=== PATIENT | male | born 1945 | race Caucasian/White ===

== ENCOUNTER → 2017-10-04 | Outpatient (REF) | payer MEDICARE ==
[2017-10-09 11:05] LABS: VITAMIN B12 LEVEL 336 PG/ML (247-911)
== END ==
LOC: M LAB REF 12:12
DX: Z13.21 Encounter for screening for nutritional disorder (principal)
CPT/HCPCS: 82746

== ENCOUNTER → 2018-06-13 | Day surgery (SDC) | payer OTHER ==
[~2018-06-13] VITALS: Ht 167.6 cm; Wt 93.8 kg
[~2018-06-13] MED LIST: ASPI-225 PO; ASPI81TA21 PO; ATEN25TA PO; COUM1TAB17 PO; COUM2.5T17 PO; COUM7.5T PO; LEVO150T7 PO; LIDOCAINE 2% INJ 100 MG/5 ML SDV (FOR ANES.) As Ordered ONE; LISI-538 PO; METF10004 PO; METF500T13 PO; NAPR220C PO; NS 1,000 ML IV ONE; PERC5TAB12 PO; PROPOFOL 200 MG/20 ML VIAL As Ordered ONE; SIMV40TA2 PO; TYLE325T5 PO
--- NOTE | 2018-06-13 10:06 | ROOR ---
Patient Name: Naga Zazueta Procedure Date: 06/13/2018 9:46 AM Date of : 1945 Age: 72 Room: [facility] Gender: Male Note Status: Finalized Procedure: Colonoscopy Indications: Screening for colorectal malignant neoplasm Providers: Christopher Estrella Jr, MD Referring MD: Andres Head MD Requesting Provider: Medicines: Propofol per Anesthesia Complications: No immediate complications. Procedure: Pre-Anesthesia Assessment: - Prior to the procedure, a History and Physical was performed, and patient medications and allergies were reviewed. The patient is competent. The risks and benefits of the procedure and the sedation options and risks were discussed with the patient. All questions were answered and informed consent was obtained. Patient identification and proposed procedure were verified by the physician and the nurse in the pre-procedure area and in the procedure room. Mental Status Examination: alert and oriented. Airway Examination: normal oropharyngeal airway and neck mobility. Respiratory Examination: clear to auscultation. CV Examination: normal. ASA Grade Assessment: II - A patient with mild systemic disease. After reviewing the risks and benefits, the patient was deemed in satisfactory condition to undergo the procedure. The anesthesia plan was to use moderate sedation / analgesia (conscious sedation). Immediately prior to administration of medications, the patient was re-assessed for adequacy to receive sedatives. The heart rate, respiratory rate, oxygen saturations, blood pressure, adequacy of pulmonary ventilation, and response to care were monitored throughout the procedure. The physical status of the patient was re-assessed after the procedure. The Colonoscope was introduced through the anus and advanced to the cecum, identified by appendiceal orifice and ileocecal valve. The colonoscopy was performed without difficulty. The patient tolerated the procedure well. The quality of the bowel preparation was adequate. Findings: The rectum, sigmoid colon, descending colon, transverse colon, ascending colon, appendiceal orifice and ileocecal valve appeared normal. A small polyp was found in the cecum. The polyp was removed with a cold snare. Resection and retrieval were complete. Impression: - The rectum, sigmoid colon, descending colon, transverse colon, ascending colon, appendiceal orifice and ileocecal valve are normal. - One small polyp in the cecum, removed with a cold snare. Resected and retrieved. Recommendation: - Repeat colonoscopy in 5-10 years for surveillance based on pathology results. - Telephone my office for pathology results in 1 week. Christopher Estrella MD Christopher Estrella Jr, MD 06/13/2018 10:06:12 AM This report has been signed electronically. Number of Addenda: 0 Note Initiated On: 06/13/2018 9:46 AM Estimated Blood Loss: Estimated blood loss: none.
[2018-06-13 10:38] VITALS: BP 105/71
== END | disposition home or self-care (01) ==
LOC: M OPP 09:05
PROVIDERS: ATTEND Surgery
DX: Z12.11 Encounter for screening for malignant neoplasm of colon (principal); D12.0 Benign neoplasm of cecum; I10 Essential (primary) hypertension; E11.9 Type 2 diabetes mellitus without complications; E78.00 Pure hypercholesterolemia, unspecified; E03.9 Hypothyroidism, unspecified; M19.90 Unspecified osteoarthritis, unspecified site; E66.9 Obesity, unspecified; Z79.899 Other long term (current) drug therapy; Z79.82 Long term (current) use of aspirin; Z79.84 Long term (current) use of oral hypoglycemic drugs; Z79.890 Hormone replacement therapy; Z98.890 Other specified postprocedural states

== ENCOUNTER → 2018-10-11 | Outpatient (CLI) | payer OTHER ==
[~2018-10-11] MED LIST changes: -LIDOCAINE 2% INJ 100 MG/5 ML SDV (FOR ANES.) As Ordered ONE; -NS 1,000 ML IV ONE; -PROPOFOL 200 MG/20 ML VIAL As Ordered ONE
[2018-10-11 10:16] LABS: HEMATOCRIT 37.3 % (42.0-52.0); HEMOGLOBIN 12.7 g/dl (13.5-17.5); MEAN CORPUSCULAR HEMOGLOBIN 33.3 pg (27.0-33.0); MEAN CORPUSCULAR VOLUME 97.9 fl (80.0-96.0); PLATELET COUNT, AUTOMATED 153 10^3/uL (150-450); RED BLOOD COUNT 3.81 10^6/uL (4.30-6.10); WHITE BLOOD COUNT 7.6 10^3/uL (4.0-10.0)
[2018-10-11 10:31] LABS: INR 1.04; PROTHROMBIN TIME 13.7 SECONDS (12.1-14.4)
[2018-10-11 10:43] LABS: ALBUMIN 4.1 GM/DL (3.2-5.2); ALT/SGPT 19 U/L (12-78); BLOOD UREA NITROGEN 18 MG/DL (7-18); CALCIUM LEVEL 9.3 MG/DL (8.8-10.2); CARBON DIOXIDE LEVEL 28 MEQ/L (21-32); CHLORIDE LEVEL 108 MEQ/L (98-107); CREATININE FOR GFR 0.92 MG/DL (0.70-1.30); GLOMERULAR FILTRATION RATE > 60.0 (>42); GLUCOSE, FASTING 136 MG/DL (70-100); POTASSIUM SERUM 4.7 MEQ/L (3.5-5.1); SODIUM LEVEL 141 MEQ/L (136-145); TOTAL PROTEIN 6.9 GM/DL (6.4-8.2)
[2018-10-11 10:48] LABS: ERYTHROCYTE SEDIMENTATION RATE 8 mm/hr (0-20)
--- NOTE | 2018-10-11 12:36 | REP ---
Chest two views HISTORY: Preop Comparison: 04/05/2015 Linear densities are present in the right middle lobe consistent with scarring. The left lung is clear. The heart is normal in size. The pulmonary vasculature is normal in appearance. The bony structure is intact. IMPRESSION: Right middle lobe scarring. Electronically Signed by Denys Rankin MD 10/11/2018 12:27 P
--- NOTE | 2018-10-11 18:47 | ECGEPIP ---
Stationary ECG Study 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
== END ==
LOC: M LAB 09:01
PROVIDERS: ATTEND Orthopaedic Surgery
DX: Z01.818 Encounter for other preprocedural examination (principal); T84.091A Other mechanical complication of internal left hip prosthesis, initial encounter; R91.8 Other nonspecific abnormal finding of lung field

== ENCOUNTER → 2018-10-18 | Outpatient (REF) | payer OTHER ==
[2018-10-18 16:05] LABS: FOLATE 15.5 NG/ML
== END ==
LOC: M LAB REF 15:21
PROVIDERS: ATTEND Family Medicine
DX: D64.9 Anemia, unspecified (principal)

== ENCOUNTER 2018-11-12 09:06 | Inpatient (IN) | payer OTHER ==
--- NOTE | 2018-11-06 11:36 | HPE ---
DATE OF ANTICIPATED ADMISSION: 11/12/2018 CHIEF COMPLAINT: Left hip pain. HISTORY OF PRESENT ILLNESS: Mr. Zazueta this is a pleasant 73-year-old male with progressively worsening left hip pain and stiffness. He is status post left total hip arthroplasty that was done 09/17/2003. He has managed to wear out his poly. He has failed to improve with conservative treatment. He has elected for surgery for his continued symptoms. He has pain with weightbearing activities and his activities of daily living. X-rays of his hip are notable for advanced polyethylene wear in the left total hip arthroplasty. He has consented for a left total hip arthroplasty revision by Dr. Jayden Montenegro. Medical optimization was performed by Dr. Head. ALLERGIES: None. CURRENT MEDICATIONS: - metformin 500 mg twice a day - lisinopril 20 mg twice a day - atenolol 25 mg in the morning - Synthroid 50 and 112 mcg in the morning - simvastatin 40 mg at night - baby aspirin at night PAST MEDICAL HISTORY: Includes, diabetes, hypertension, high cholesterol, and hypothyroidism. PAST SURGICAL HISTORY: Includes, bilateral total knee arthroplasties and a left total hip arthroplasty. SOCIAL HISTORY: This gentleman is retired. Does not smoke. Rarely drinks. FAMILY HISTORY: Is noncontributory. REVIEW OF SYSTEMS: This patient denies chest pain, heart palpitations, cough, wheezing, difficulty breathing, and shortness of breath. He denies abdominal pain, nausea, vomiting, diarrhea, or constipation. He denies recent upper respiratory infection or urinary tract infection symptoms. He does complain of persistent pain in his left hip. PHYSICAL EXAM: General: He is well-nourished, well-developed, in no acute distress, alert male patient who walks with a mild limp favoring the left lower extremity. He is not using assistive devices. Vital signs: He is 66 inches tall, weighs 206.5 pounds, temperature 97.6, blood pressure 120/70, pulse 72, and respirations of 18. Neck was supple without adenopathy or jugular venous distension. Lungs were clear to auscultation without rales or wheeze. Heart: Regular rate and rhythm. Abdomen: Bowel sounds were present. Extremities: Examination of the hip revealed a well-healed surgical scar, otherwise, the skin was intact. He had decreased internal, external rotation on exam due to pain and stiffness. The limb is neurovascularly intact. LABORATORY DATA: Chest x-ray showed right middle lobe scarring, otherwise, no acute cardiopulmonary disease processes. EKG showed sinus rhythm with sinus arrhythmia at 62 beats per minute. CBC showed red count of 3.81, hemoglobin of 12.7, hematocrit of 37.3, MCV of 97.9, and MCH of 33.3, otherwise within normal limits. Sed rate was 8. Glucose 136, BUN 18, creatinine 0.92. Prothrombin time 13.7, INR 1.04. 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 PLAN: Consented for a left total hip arthroplasty revision by Dr. Jayden Montenegro.
[2018-11-12] VITALS (7 sets, daily range): BP systolic 70–105; BP diastolic 40–78
[~2018-11-12] VITALS: Ht 167.6 cm; Wt 93.9 kg
[~2018-11-12 09:06] MED LIST changes: +LIDOCAINE 1% MDV 20ML VIAL SQ PRN
[2018-11-12] MEDS ORDERED: LR 1,000 ML IV ONE ×2 (09:30→19:15)
[2018-11-12] MEDS ORDERED: BUPIVACAINE HCL 0.25% 30 ML VIAL As Ordered ONE (11:09)
[2018-11-12] MEDS ORDERED: fentaNYL 100 MCG/2 ML INJECTION (J3010) As Ordered ONE (11:10)
[2018-11-12] MEDS ORDERED: MIDAZOLAM INJ 2 MG/2 ML VIAL (J2250) As Ordered ONE (11:10)
[2018-11-12] MEDS ORDERED: LIDOCAINE 2% INJ 100 MG/5 ML SDV (FOR ANES.) As Ordered ONE (12:18)
[2018-11-12] MEDS ORDERED: ONDANSETRON 4MG/2ML VIAL (J2405) As Ordered ONE (12:18)
[2018-11-12] MEDS ORDERED: dexameTHASONE 4 MG/ML 1ML VIAL (J1100) As Ordered ONE (12:18)
[2018-11-12] MEDS ORDERED: PROPOFOL 500 MG/50 ML VIAL As Ordered ONE (12:19)
[2018-11-12] MEDS ORDERED: TRANEXAMIC ACID 100 MG/ML 10ML VIAL As Ordered ONE (12:55)
[2018-11-12] MEDS ORDERED: EPINEPHrine INJ 1 MG/ML 1ML AMP As Ordered ONE (12:55)
[2018-11-12] MEDS ORDERED: ceFAZolin 1GM INJ (J0690 PER 500MG) As Ordered ONE (12:55)
[2018-11-12] MEDS ORDERED: BUPIVACAINE HCL 0.5% 30 ML VIAL As Ordered ONE (12:58)
[2018-11-12] MEDS ORDERED: BUPIVACAINE LIPOSOME/PF 1.3% 20ML VIAL (13.3MG/ML)(EXPAREL)(C9290 PER1MG) As Ordered ONE (13:24)
[2018-11-12] MEDS ORDERED: BUPIVACAINE HCL 0.5% 10 ML VIAL As Ordered ONE (13:24)
--- NOTE | 2018-11-12 13:32 | HPE ---
DATE OF ADMISSION: 11/12/2018 The patient is seen and examined preoperatively. He wished to ahead with a revision left hip arthroplasty. 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 He understands the nature of this, the risks of bleeding, infection, damage to nerves, vessels, persistent pain, wear loosening, dislocation, leg length inequality, blood clots, medical problems, , among others. He understands our goal is to try to just remove the polyethylene and the femoral head and replace those and likely bone graft some of the areas of osteolysis. However, if the components are loose, this may require more surgery, and he is aware of that. Preoperative clearance was obtained.
[2018-11-12] MEDS ORDERED: PHENYLephrine HCL 500 MCG/5 ML (100MCG/ML) SYRINGE (J2370) As Ordered ONE (13:54)
[2018-11-12] MEDS ORDERED: ePHEDrine SULFATE 25 MG/5 ML(5MG/ML) SYRINGE As Ordered ONE ×2 (13:54→14:44)
[2018-11-12] MEDS ORDERED: PHENYLEPHRINE INJ 10MG/ML VIAL (J2370) As Ordered ONE (14:22)
[2018-11-12] MEDS ORDERED: PROPOFOL 200 MG/20 ML VIAL As Ordered ONE (15:49)
[2018-11-12] MEDS ORDERED: METOCLOPRAMIDE INJ 10MG/2ML VIAL (J2765) IV PRN (16:30)
[2018-11-12] MEDS ORDERED: oxyCODONE 5MG TAB PO PRN (16:30)
[2018-11-12] MEDS ORDERED: PROMETHAZINE INJ 25 MG/ML VIAL (J2550) IV PRN (16:30)
[2018-11-12] MEDS ORDERED: LR 1,000 ML IV SCH (16:30)
[2018-11-12] MEDS ORDERED: MORPHINE 4 MG/ML 1ML VIAL/SYRINGE (J2270) IV PRN ×2 (16:30)
[2018-11-12] MEDS: LR 1,000 ML IV SCH (16:30)
[2018-11-12] MEDS ORDERED: fentaNYL 100 MCG/2 ML INJECTION (J3010) IV PRN (16:30)
[2018-11-12] MEDS ORDERED: ONDANSETRON 4MG/2ML VIAL (J2405) IV PRN (16:30)
--- NOTE | 2018-11-12 16:37 | REP ---
Portable left hip two views: The lateral view is under penetrated. A repeat lateral view is recommended. On the AP view, there is a total hip arthroplasty with the components tightly applied and in satisfactory positions alignment in this single projection. Electronically Signed by Tre Rivers MD 11/12/2018 04:28 P
[2018-11-12] MEDS ORDERED: ACETAMINOPHEN TAB 650MG DOSE (2X325MG) PO PRN (16:45)
[2018-11-12] MEDS ORDERED: FLEET ENEMA PR PRN (16:45)
[2018-11-12 16:50] LABS: HEMATOCRIT 29.4 % (42.0-52.0); HEMOGLOBIN 9.8 g/dl (13.5-17.5); MEAN CORPUSCULAR HEMOGLOBIN 31.8 pg (27.0-33.0); MEAN CORPUSCULAR HGB CONC 33.3 g/dl (32.0-36.5); MEAN CORPUSCULAR VOLUME 95.5 fl (80.0-96.0); PLATELET COUNT, AUTOMATED 159 10^3/uL (150-450); RED BLOOD COUNT 3.08 10^6/uL (4.30-6.10); WHITE BLOOD COUNT 10.5 10^3/uL (4.0-10.0)
--- NOTE | 2018-11-12 19:03 | IPNPDOC ---
Date Seen The patient was seen on 11/12/18. Progress Note Nurse called regarding patient being hypotensive, wasn't sure who the attending was. Reportedly had BP in the 70s systolic and patient was diaphoretic, reportedly had significant blood loss from procedure. CBC post op showed Hb 9.8. Patient was placed in Tredelenberg. Upon assessment, BP is up to 90 systolic, patient fully alert and oriented, stating he feels much better than prior. To repeat CBC stat, may need transfusion. To get 500cc IVF bolus at this time as well. Will endorse to night time hospitalist for follow up. BAL VERMA MD Nov 12, 2018 19:03
[2018-11-12 19:39] LABS: HEMATOCRIT 27.8 % (42.0-52.0); HEMOGLOBIN 9.2 g/dl (13.5-17.5); MEAN CORPUSCULAR HEMOGLOBIN 32.7 pg (27.0-33.0); MEAN CORPUSCULAR HGB CONC 33.1 g/dl (32.0-36.5); MEAN CORPUSCULAR VOLUME 98.9 fl (80.0-96.0); PLATELET COUNT, AUTOMATED 172 10^3/uL (150-450); RED BLOOD COUNT 2.81 10^6/uL (4.30-6.10); WHITE BLOOD COUNT 20.5 10^3/uL (4.0-10.0)
[2018-11-12] MEDS ORDERED: LIDOCAINE 1% MDV 20ML VIAL ONE (19:48)
[2018-11-12] MEDS: PERCOCET 5MG/325MG TAB PO PRN (21:49)
--- NOTE | 2018-11-12 22:09 | CR.PDOC ---
General Date of Consultation: Nov 12, 2018 Consultation HPI 73-year-old male with a PMH of HTN, HLD, hypothyroidism, prostate cancer s/p prostatectomy, b/l knee and hip surgery from osteoarthritis, presented with progressively worsening left hip pain and stiffness. He is status post left total hip arthroplasty in 2004. He has failed to improve with conservative treatment. He has elected for surgery for his continued symptoms. He has pain with weightbearing activities and his activities of daily living. X-rays of his hip are notable for advanced polyethylene wear in the left total hip arthroplasty. The patient was taken to the OR for revision of the L total hip arthroplasty, and surgery was complicated by blood loss anemia. Post-op, the pa tient was hypotensive, which required IV hydration. ALLERGIES: None. CURRENT MEDICATIONS: - Metformin 500 mg twice a day - Lisinopril 20 mg twice a day - Atenolol 25 mg in the morning - Synthroid 50 and 112 mcg in the morning - Simvastatin 40 mg at night - Baby aspirin at night PAST MEDICAL HISTORY: Includes HTN, HLD, hypothyroidism, prostate cancer PAST SURGICAL HISTORY: Includes, bilateral total knee arthroplasties and a left total hip arthroplasty. Prostatectomy SOCIAL HISTORY: This gentleman is retired. Denies smoking or EtOH abuse FAMILY HISTORY: Mother DM and of DM complications. Father had prostate cancer. REVIEW OF SYSTEMS: This patient denies chest pain, heart palpitations, cough, wheezing, difficulty breathing, and shortness of breath. He denies abdominal pain, nausea, vomiting, diarrhea, or constipation. He denies recent upper respiratory infection or urinary tract infection symptoms. He does complain of persistent pain in his left hip. PHYSICAL EXAM: General: Not in acute distress. Obese Neck: supple without adenopathy or jugular venous distension. Lungs: clear to auscultation bilaterally Heart: Regular rate and rhythm. No obvious murmurs. Abdomen: Bowel sounds were present. Nontender, nondistended Extremities: Wrapped L hip with minor blood soaking, no edema Skin: no rashes, sores or blisters A/P 73 yo M Includes HTN, HLD, hypothyroidism, prostate cancer, b/l knee and hip surgery, underwent revision of L hip # Hypotension - Post-op, the patient was found to be hypotensive, requiring IV bolus and continous IV hydration. - Continue IV hydration and follow vital signs # HTN, HLD - Hold off medications # Hypothyroidism - Cont. levothyroxine, home med # Acute blood loss anemia - Will transfuse if Hb<7 # No DVT ppx, given bleeding. SCD for now. Vital Signs/I&O Vital Signs Date Time Temp Pulse Resp B/P (MAP) Pulse Ox O2 Delivery O2 Flow Rate FiO2 11/12/18 21:49 16 11/12/18 20:00 98/56 (70) 11/12/18 18:00 97.1 53 97 11/12/18 13:15 2 Laboratory Data Labs 24H Laboratory Tests 2 11/12/18 13:12: Bedside Glucose (Misc Panel) 124H 11/12/18 15:15: POC pH (Misc Panel) 7.361, POC Base Excess (Misc Panel) 5.0H, POC Saturated Percent O2 (Misc) 76L, POC pO2 (Misc Panel) 43.0*L, POC pCO2 (Misc Panel) 53.0H, POC HCO3 (Misc Panel) 30.0H, POC Glucose (Misc Panel) 127H, POC Sodium (Misc Panel) 138, POC Potassium (Misc Panel) 6.2*H, POC Total CO2 (Misc Panel) 32.0H, POC Ionized Calcium (Misc Panel) 4.6, POC Hemoglobin (Calculated)(Misc) 10.2L, POC Hematocrit (Misc Panel) 30.0L 11/12/18 16:30: Nucleated Red Blood Cells % (auto) 0.0 11/12/18 18:27: Bedside Glucose (Misc Panel) 209H 11/12/18 19:18: Nucleated Red Blood Cells % (auto) 0.0 CBC/BMP Laboratory Tests 11/12/18 09:22 11/12/18 16:30 Red Blood Count 3.08 L, Mean Corpuscular Volume 95.5, Mean Corpuscular Hemoglobin 31.8, Mean Corpuscular Hemoglobin Concent 33.3, Red Cell Distribution Width 13.2 11/12/18 19:18 Red Blood Count 2.81 L, Mean Corpuscular Volume 98.9 H, Mean Corpuscular Hemoglobin 32.7, Mean Corpuscular Hemoglobin Concent 33.1, Red Cell Distribution Width 13.0 Allergies Coded Allergies: No Known Allergies (Verified , 11/12/18) Home Medications Scheduled Aspirin (Aspirin EC) 81 Mg Tab, 81 MG PO DAILY, (Reported) Atenolol (Atenolol) 25 Mg Tab, 25 MG PO DAILY, (Reported) Levothyroxine Sodium (Levothyroxine Sodium) 150 Mcg Tab, 150 MCG PO DAILY, (Reported) Lisinopril (Lisinopril) 20 Mg Tab, 20 MG PO BID, (Reported) Metformin HCl (Metformin HCl) 500 Mg Tab, 500 MG PO QAM, (Reported) Metformin HCl (Metformin HCl) 1,000 Mg Tab, 1,000 MG PO QPM, (Reported) Simvastatin (Simvastatin) 40 Mg Tab, 40 MG PO QHS, (Reported) TRINY PAN MD Nov 12, 2018 22:09
[2018-11-12] MEDS: SIMVASTATIN 40 MG TAB PO SCH (22:44)
[2018-11-12] MEDS ORDERED: SODIUM CHLORIDE 0.9% 1000ML IV ONE (23:00)
--- NOTE | 2018-11-12 23:00 | IPNPDOC ---
Text Note Date of Service The patient was seen on 11/12/18. NOTE Pateint and family very concerned about his BP and wanted to talk to a physic samantha. i spoke with pateint and daughter and reassured them that there may be drop in Bp after surgery as there was significant amount of blood loss. BP still lowish 100/60 will give another 500 cc NS bolus. Noted K was high this am. Wll check cbc and basic at midnight and if HH drops below 8.0 will transfuse. patient tells me his Hb has been around 10 for many years. Consent done. Has 2 units in Blood bank. hold all antihypertensive meds. VS,Fishbone, I+O VS, Fishbone, I+O Laboratory Tests 11/12/18 09:22 11/12/18 16:30 Red Blood Count 3.08 L, Mean Corpuscular Volume 95.5, Mean Corpuscular Hemoglobin 31.8, Mean Corpuscular Hemoglobin Concent 33.3, Red Cell Distribution Width 13.2 11/12/18 19:18 Red Blood Count 2.81 L, Mean Corpuscular Volume 98.9 H, Mean Corpuscular Hemoglobin 32.7, Mean Corpuscular Hemoglobin Concent 33.1, Red Cell Distribution Width 13.0 Vital Signs Date Time Temp Pulse Resp B/P (MAP) Pulse Ox O2 Delivery O2 Flow Rate FiO2 11/12/18 22:19 16 11/12/18 20:00 98/56 (70) 11/12/18 18:00 97.1 53 97 11/12/18 13:15 2 CAROLYN FREDERICK MD Nov 12, 2018 23:00
[2018-11-13 00:30] LABS: HEMATOCRIT 22.6 % (42.0-52.0); HEMOGLOBIN 7.7 g/dl (13.5-17.5); MEAN CORPUSCULAR HEMOGLOBIN 32.5 pg (27.0-33.0); MEAN CORPUSCULAR HGB CONC 34.1 g/dl (32.0-36.5); MEAN CORPUSCULAR VOLUME 95.4 fl (80.0-96.0); PLATELET COUNT, AUTOMATED 151 10^3/uL (150-450); RED BLOOD COUNT 2.37 10^6/uL (4.30-6.10); WHITE BLOOD COUNT 18.3 10^3/uL (4.0-10.0)
[2018-11-13 00:39] LABS: BLOOD UREA NITROGEN 21 MG/DL (7-18); CALCIUM LEVEL 7.5 MG/DL (8.8-10.2); CARBON DIOXIDE LEVEL 26 MEQ/L (21-32); CHLORIDE LEVEL 106 MEQ/L (98-107); CREATININE FOR GFR 1.14 MG/DL (0.70-1.30); GLOMERULAR FILTRATION RATE > 60.0 (>42); GLUCOSE, FASTING 236 MG/DL (70-100); POTASSIUM SERUM 4.2 MEQ/L (3.5-5.1); SODIUM LEVEL 138 MEQ/L (136-145)
[2018-11-13 02:00] VITALS: BP 100/63
[2018-11-13] MEDS: LR 1,000 ML IV SCH (05:01)
[2018-11-13 06:00] VITALS: BP 107/64
[2018-11-13] MEDS: PERCOCET 5MG/325MG TAB PO PRN ×2 (06:01→20:23)
[2018-11-13] MEDS: LEVOTHYROXINE 150MCG TABLET (0.15MG) PO SCH (06:01)
[2018-11-13] MEDS ORDERED: MOM 30ML SUSPENSION UDC PO SCH (06:15)
[2018-11-13] MEDS ORDERED: PERCOCET 5MG/325MG TAB PO PRN (06:15)
[2018-11-13 07:31] LABS: HEMATOCRIT 25.4 % (42.0-52.0); HEMOGLOBIN 8.5 g/dl (13.5-17.5); MEAN CORPUSCULAR HEMOGLOBIN 30.9 pg (27.0-33.0); MEAN CORPUSCULAR HGB CONC 33.5 g/dl (32.0-36.5); MEAN CORPUSCULAR VOLUME 92.4 fl (80.0-96.0); PLATELET COUNT, AUTOMATED 149 10^3/uL (150-450); RED BLOOD COUNT 2.75 10^6/uL (4.30-6.10); WHITE BLOOD COUNT 18.8 10^3/uL (4.0-10.0)
[2018-11-13 07:57] LABS: ALBUMIN 2.6 GM/DL (3.2-5.2); ALT/SGPT 15 U/L (12-78); BILIRUBIN,TOTAL 0.8 MG/DL (0.2-1.0); BLOOD UREA NITROGEN 19 MG/DL (7-18); CALCIUM LEVEL 7.6 MG/DL (8.8-10.2); CARBON DIOXIDE LEVEL 27 MEQ/L (21-32); CHLORIDE LEVEL 107 MEQ/L (98-107); GLOMERULAR FILTRATION RATE > 60.0 (>42); GLUCOSE, FASTING 180 MG/DL (70-100); POTASSIUM SERUM 4.1 MEQ/L (3.5-5.1); SODIUM LEVEL 140 MEQ/L (136-145); TOTAL PROTEIN 5.2 GM/DL (6.4-8.2)
[2018-11-13] MEDS: MIRALAX *UNIT DOSE* 17GM PACKET PO SCH ×2 (09:00→17:34)
[2018-11-13] MEDS: MOM 30ML SUSPENSION UDC PO SCH ×2 (09:00→17:34)
[2018-11-13] MEDS ORDERED: LEVOTHYROXINE 150MCG TABLET (0.15MG) PO SCH (09:00)
--- NOTE | 2018-11-13 09:16 | RO ---
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 PROCEDURE PERFORMED: Revision left total hip arthroplasty using the retained implants of the femur and acetabulum with revision of femoral head and acetabular liner with bone grafting of substantial osteolytic defects around the acetabulum and proximal femur. SURGEON: Dr. Jayden Montenegro. COAT REPAIR INSPECTOR: Dr. Jose Carlos Pain[employer]. SECOND GAS METER MECHANIC: Isabel Montenegro ANESTHESIA: Spinal ESTIMATED BLOOD LOSS: 1200 mL COMPLICATIONS: None. INDICATIONS: 73-year-old gentleman who has had some discomfort with his left hip but mostly had significant polyethylene wear from hip replacement that was done by Dr. Cullen roughly 2003. He also had significant ostial lysis and we advised revision arthroplasty as this was likely to lead to a significant failure down the road. He understood the nature of this, the risks associated with this. DESCRIPTION OF PROCEDURE: The patient was taken to the operating room and placed supine position after spinal anesthesia was induced. Then turned to the right lateral decubitus position on the [place] positioner. All areas were padded appropriately. The left hip was prepped and draped in usual sterile fashion. Time-out was performed. I then created longitudinal incision over the lateral aspect the hip and sharp dissection was carried down through subcutaneous tissue til I identified the fascia. I then elevated flaps on the front and back of the fascia just to be able to later identify that plane. Controlled hemostasis with a cautery and then incised the fascia tucker. There was significant scar tissue and significant heterotopic bone in the abductors, which made this a very challenging dissection to get down to the neck and head and exposed up to the rim of the acetabulum. Care was taken not to dissect any more proximally. I also dissected a fair amount down along the femoral shaft down to the lesser trochanter and gradually exposed this which took probably an hour and a half for just exposure. At this point, we dislocated the hip and removed the head with an impactor mallet and carefully dissected around the acetabulum until we had good exposure. It was evident that around about half the circumference of the acetabulum was significant lysis with contained pockets that were filled with poly wear debris, which were carefully curetted and irrigated out. I then bone grafted with roughly 30 mL of crushed cancellus bone graft around this contained defect in the acetabulum. We impacted the bone graft in to try to prevent it from migrating and then made sure that the acetabular liner was exposed. I removed this with a removal tool with some difficulty and then removed the locking ring. At this point, I removed the apex hole eliminator in order to allow for trial reductions and the polyethylene was screwed into the acetabular component using the standard liner with no elevated rim and then we trialled off this with the femoral component. Went up to a +8.5, 32 ball instead of a 28, which he had previously, and put the hip through range of motion. I felt like we could add a little bit more length due to some shuck in full extension and a little bit of instability in flexion internal rotation. It appeared that the acetabular component was a little less anteverted than I would have liked but it was well seated and intact and we had good stability with these components. However, I elected to go with the 36 ball and a +4 liner and after trialing these was very pleased with the stability and the soft tissue tension. Removed the trial components, placed the apex hole eliminator, placed the locking ring and then impacted in the +4, 36 liner into the Duraloc cup. Made sure it was well seated. We had irrigated multiple times. Made sure the bone graft was still well contained. I then directed our attention the femur and I had previously curetted significant amount of polyethylene wear debris from around the proximal femur. It actually had eroded away the medial calcar and some of the anterior calcar, which was basically just soft tissue. This was all rongeured away and curetted until I was down to good bone around the proximal femur. There was no evidence of any loosening of the femoral component. I irrigated copiously and then impacted another 30 mL of crushed cancellus bone graft around the proximal femur filling a large contained defects mostly posteriorly and laterally but also some medially into the lesser trocar region. We then placed the +8.5, 36 ball on and reduced the hip. Put the hip through range of motion again. I was very pleased with soft tissue tension and range of motion and stability. Copious irrigation was performed taking care not to dislodge the bone grafting. TXA solution was used. We had controlled hemostasis along the way with cautery. I did get into a little bit of bleeding inferiorly at the acetabulum during the exposure which we were able to coagulate. Then the TXA was allowed to sit for several minutes at the end of the case. I then repaired the abductors with #1-0 Vicryl suture in interrupted [id number] fashion. The fascia tucker with #1-0 Vicryl suture followed by a running Stratafix suture in both directions. I injected some Exparel into the deep tissues. I irrigated, closed subcu with 2-0 Vicryl and the skin with siobhan. Sterile dressing was applied. There were no known complications. The plan will be routine postop. I think we can allow him to continue to full weight-bear because was no evidence of any loosening of the components. We will have anesthesia check his hemoglobin and hematocrit in the recovery room and then we will order one for later on this evening because there was a reasonable amount of blood loss. The printer assistant was instrumental in holding retractors and assisting in curetting out the cysts and assisting in reducing and dislocating the hip and assisting in multiple judgment calls throughout the procedure. Assisting in wound closure. This is coded as unusually difficult procedure because this took a significant amount more time than standard hip replacement. The exposure was much more difficult. There was a substantial amount of scar tissue and there was also these large lytic defects from polyethylene and macrophage wear debris. So this resulted and a substantially more difficult case.
[2018-11-13 10:23] VITALS: BP 104/58
[2018-11-13 14:54] VITALS: BP 112/64
--- NOTE | 2018-11-13 16:51 | IPNPDOC ---
Subjective Date Seen The patient was seen on 11/13/18. Subjective Chief Complaint/HPI The patient had a good night sleep. Given blood loss anemia, the patient received one unit of transfusion yesterday night. Currently, she does not have any complaints except for hip pain, 3-09/04. General: Denies: ROS Unobtainable, Chills, Night Sweats, Fatigue, Malaise, Normal Appetite, Other Symptoms Constitutional: Denies: Chills, Fever, Malaise, Night Sweats, Weakness, Fatigue, Weight Loss, Lethargy, Other Eyes: Denies: Pain, Vision change, Conjunctivae inflammation, Eyelid inflammation, Redness, Other ENT: Denies: Head Aches, Ear Pain, Dysphagia, Sinus Congestion, Post Nasal Drip, Sore Throat, Epistaxis, Other Symptoms Skin: Denies: Rash, Lesions, Jaundice, Bruising, Itching, Dry, Breakdown, Nail Changes, Other Pulmonary: Denies: Dyspnea, Cough, Pleuritic Chest Pain, Other Symptoms Cardiovascular: Denies: Chest Pain, Palpitations, Orthopnea, Paroxysmal Noc. Dyspnea, Edema, Lt Headedness, Other Symptoms Gastrointestinal: Denies: Nausea, Vomiting, Abdominal Pain, Diarrhea, Constipation, Melena, Hematochezia, Other Symptoms Genitourinary: Denies: Dysuria, Frequency, Incontinence, Hematuria, Retention, Other Symptoms Hematologic: Denies: Bruising, Bleeding Excessively, Petecchia, Purpura, Enlarged Lymph Nodes, Other Hematologic Endocrine: Denies: Polydipsia, Polyphagia, Polyuria, Heat Intolerance, Cold Intolerance, Other Endocrine Sx Musculoskeletal: Reports: Joint Pain Neurological: Denies: Weakness, Numbness, Incoordination, Change in speech, Confusion, Seizures, Other Symptoms Psych: Denies: Mood Normal, Anxiety, Depression, Memory Issues, Thoughts of Self Harm, Anger, Thoughts of Harming Other, Other Psych Objective Physical Examination General Exam: Positive: Alert, Cooperative Eye Exam: Positive: PERRLA ENT Exam: Positive: Atraumatic, Mucous membr. moist/pink Neck Exam: Positive: Supple Chest Exam: Positive: Clear to auscultation, Normal air movement Heart Exam: Positive: Rate Normal Telemetry: Positive: No significant arrhythmia Abdomen Exam: Positive: Normal bowel sounds Extremity Exam: Positive: Other (no edema) Skin Exam: Positive: Nl turgor and temperature Neuro Exam: Positive: Normal Speech Psych Exam: Positive: Mood NL Assessment /Plan Problems (1) HTN (hypertension) Status: Acute Problem Text: # Hypotension. - Post-op, the patient was found to be hypotensive, requiring IV bolus and continous IV hydration. - Continue IV hydration and follow vital signs # HTN, HLD - Hold off medications given hypotension. # Hypothyroidism - Cont. levothyroxine, home med # DM 2 - Continue home medication, metformin. # Acute blood loss anemia - Will transfuse if Hb<7 # DVT ppx - starting xarelto from tonight per orthopedic team. Disposition - the patient is working with PT. PT recommends one more session. Plan/VTE VTE Prophylaxis Ordered?: Yes VS, I&O, 24H, Fishbone Vital Signs/I&O Vital Signs Date Time Temp Pulse Resp B/P (MAP) Pulse Ox O2 Delivery O2 Flow Rate FiO2 11/13/18 14:53 18 11/13/18 06:00 98.4 79 107/64 (78) 98 11/12/18 13:15 2 I&O- Last 24 Hours up to 6 AM 11/13/18 06:00 Intake Total 4850 ml Output Total 2400 ml Balance 2450 ml Laboratory Data 24H LABS Laboratory Tests 2 11/12/18 18:27: Bedside Glucose (Misc Panel) 209H 11/12/18 19:18: Nucleated Red Blood Cells % (auto) 0.0 11/12/18 23:54: Nucleated Red Blood Cells % (auto) 0.0, Anion Gap 6L, Glomerular Filtration Rate > 60.0, Blood Urea Nitrogen 21H, Creatinine 1.14, Sodium Level 138, Potassium Level 4.2, Chloride Level 106, Carbon Dioxide Level 26, Calcium Level 7.5L 11/13/18 06:52: Nucleated Red Blood Cells % (auto) 0.0, Anion Gap 6L, Glomerular Filtration Rate > 60.0, Blood Urea Nitrogen 19H, Creatinine 1.00, Sodium Level 140, Potassium Level 4.1, Chloride Level 107, Carbon Dioxide Level 27, Calcium Level 7.6L, Aspartate Amino Transf (AST/SGOT) 14, Alanine Aminotransferase (ALT/SGPT) 15, Alkaline Phosphatase 39L, Total Bilirubin 0.8, Total Protein 5.2L, Albumin 2.6L, Albumin/Globulin Ratio 1.00 CBC/BMP Laboratory Tests 11/12/18 19:18 Red Blood Count 2.81 L, Mean Corpuscular Volume 98.9 H, Mean Corpuscular Hemogl obin 32.7, Mean Corpuscular Hemoglobin Concent 33.1, Red Cell Distribution Width 13.0 11/12/18 23:54 Red Blood Count 2.37 L, Mean Corpuscular Volume 95.4, Mean Corpuscular Hemog lobin 32.5, Mean Corpuscular Hemoglobin Concent 34.1, Red Cell Distribution Width 13.2, Calcium Level 7.5 L 11/13/18 06:52 Red Blood Count 2.75 L, Mean Corpuscular Volume 92.4, Mean Corpuscular Hemoglobin 30.9, Mean Corpuscular Hemoglobin Concent 33.5, Red Cell Distribution Width 13.6, Calcium Level 7.6 L, Aspartate Amino Transf (AST/SGOT) 14, Alanine Aminotransferase (ALT/SGPT) 15, Alkaline Phosphatase 39 L, Total Bilirubin 0.8, Total Protein 5.2 L, Albumin 2.6 L TRINY PAN MD Nov 13, 2018 16:51
[2018-11-13] MEDS: SIMVASTATIN 40 MG TAB PO SCH (17:28)
[2018-11-13] MEDS ORDERED: RIVAROXABAN 10 MG TAB (XARELTO) PO SCH (18:00)
[2018-11-13] MEDS ORDERED: metFORMIN (GLUCOPHAGE) 1000 MG TABLET PO SCH (18:00)
[2018-11-13 22:00] VITALS: BP 112/65
[2018-11-14] MEDS: PERCOCET 5MG/325MG TAB PO PRN ×2 (05:47→12:29)
[2018-11-14] MEDS: LEVOTHYROXINE 150MCG TABLET (0.15MG) PO SCH (05:47)
[2018-11-14 06:00] VITALS: BP 116/67
[2018-11-14] MEDS ORDERED: XARE10TA PO (06:49)
[2018-11-14] MEDS ORDERED: PERC5TAB12 PO (06:49)
[2018-11-14 07:24] LABS: HEMATOCRIT 24.5 % (42.0-52.0); HEMOGLOBIN 8.2 g/dl (13.5-17.5); MEAN CORPUSCULAR HEMOGLOBIN 31.8 pg (27.0-33.0); MEAN CORPUSCULAR HGB CONC 33.5 g/dl (32.0-36.5); PLATELET COUNT, AUTOMATED 124 10^3/uL (150-450); RED BLOOD COUNT 2.58 10^6/uL (4.30-6.10); WHITE BLOOD COUNT 13.3 10^3/uL (4.0-10.0)
[2018-11-14 07:58] LABS: ALBUMIN 2.8 GM/DL (3.2-5.2); ALT/SGPT 13 U/L (12-78); BILIRUBIN,TOTAL 1.3 MG/DL (0.2-1.0); BLOOD UREA NITROGEN 16 MG/DL (7-18); CALCIUM LEVEL 7.5 MG/DL (8.8-10.2); CARBON DIOXIDE LEVEL 30 MEQ/L (21-32); CHLORIDE LEVEL 106 MEQ/L (98-107); CREATININE FOR GFR 0.84 MG/DL (0.70-1.30); GLOMERULAR FILTRATION RATE > 60.0 (>42); GLUCOSE, FASTING 149 MG/DL (70-100); POTASSIUM SERUM 4.2 MEQ/L (3.5-5.1); SODIUM LEVEL 139 MEQ/L (136-145); TOTAL PROTEIN 5.3 GM/DL (6.4-8.2)
[2018-11-14] MEDS ORDERED: metFORMIN (GLUCOPHAGE) 500 MG TAB PO SCH (08:00)
[2018-11-14] MEDS: MIRALAX *UNIT DOSE* 17GM PACKET PO SCH (09:03)
[2018-11-14] MEDS: MOM 30ML SUSPENSION UDC PO SCH (09:03)
--- NOTE | 2018-11-14 11:45 | DS.PDOC ---
Discharge Summary General Date of Admission Nov 12, 2018 at 09:06 Date of Discharge 11/14/2018 Discharge Summary 73-year-old male with a PMH of HTN, HLD, hypothyroidism, prostate cancer s/p prostatectomy, b/l knee and hip surgery from osteoarthritis, presented with progressively worsening left hip pain and stiffness. He is status post left total hip arthroplasty in 2004. He has failed to improve with conservative treatment. He has elected for surgery for his continued symptoms. He has pain with weightbearing activities and his activities of daily living. X-rays of his hip are notable for advanced polyethylene wear in the left total hip arthroplasty. The patient was taken to the OR for revision of the L total hip arthroplasty, and surgery was complicated by blood loss anemia. Post-op, the patient was hypotensive, which required IV hydration. The patient had surgery without complications. He lost blood, developed blood loss anemia, and he had transfusion with 2 units of pRBC. His BP was low, and he received IV hydration. His BP medications were held. Other medications were continued. He is medically stable to be discharged. He will continue his home medications. He will need to follow up with orthopedics and primary care physician. Vital Signs/I&Os Vital Signs Date Time Temp Pulse Resp B/P (MAP) Pulse Ox O2 Delivery O2 Flow Rate FiO2 11/14/18 06:17 18 11/14/18 06:00 100.2 95 116/67 (83) 95 11/12/18 13:15 2 I&O- Last 24 Hours up to 6 AM 11/14/18 06:00 Intake Total 640 ml Output Total 675 ml Balance -35 ml Laboratory Data Labs 24H Laboratory Tests 2 11/13/18 20:24: Bedside Glucose (Misc Panel) 236H 11/14/18 07:05: Nucleated Red Blood Cells % (auto) 0.0, Anion Gap 3L, Glomerular Filtration Rate > 60.0, Blood Urea Nitrogen 16, Creatinine 0.84, Sodium Level 139, Potassium Level 4.2, Chloride Level 106, Carbon Dioxide Level 30, Calcium Level 7.5L, Aspartate Amino Transf (AST/SGOT) 13, Alanine Aminotransferase (ALT/SGPT) 13, Alkaline Phosphatase 42L, Total Bilirubin 1.3#H, Total Protein 5.3L, Albumin 2.8L, Albumin/Globulin Ratio 1.12 CBC/BMP Laboratory Tests 11/14/18 07:05 Red Blood Count 2.58 L, Mean Corpuscular Volume 95.0, Mean Corpuscular Hemoglobin 31.8, Mean Corpuscular Hemoglobin Concent 33.5, Red Cell Distribution Width 14.2, Calcium Level 7.5 L, Aspartate Amino Transf (AST/SGOT) 13, Alanine Aminotransferase (ALT/SGPT) 13, Alkaline Phosphatase 42 L, Total Bilirubin 1.3 #H, Total Protein 5.3 L, Albumin 2.8 L FSBS Laboratory Tests Test 11/13/18 20:24 Range/Units Bedside Glucose (Misc Panel) 236 83-110 MG/DL Discharge Medications Scheduled Atenolol (Atenolol) 25 Mg Tab, 25 MG PO DAILY, (Reported) Levothyroxine Sodium (Levothyroxine Sodium) 150 Mcg Tab, 150 MCG PO DAILY, (Reported) Lisinopril (Lisinopril) 20 Mg Tab, 20 MG PO BID, (Reported) Metformin HCl (Metformin HCl) 500 Mg Tab, 500 MG PO QAM, (Reported) Metformin HCl (Metformin HCl) 1,000 Mg Tab, 1,000 MG PO QPM, (Reported) Rivaroxaban (Xarelto) 10 Mg Tablet, 10 MG PO DAILY Simvastatin (Simvastatin) 40 Mg Tab, 40 MG PO QHS, (Reported) Scheduled PRN Oxycodone HCl/Acetaminophen (Percocet 5-325 mg Tablet) 1 Each Tablet, 1 TAB PO Q4H PRN for PAIN Allergies Coded Allergies: No Known Allergies (Verified , 11/12/18) TRINY PAN MD Nov 14, 2018 11:45
--- NOTE | 2018-11-19 13:03 | DSES ---
DATE OF ADMISSION: 11/12/2018 DATE OF DISCHARGE: 11/14/2018 DISCHARGE DIAGNOSIS: Left hip pain and stiffness status post left total hip arthroplasty. HISTORY: This is a 73-year-old male with progressively worsening left hip pain and stiffness. He had failed to improve with conservative treatment. He elected for surgery for his continued symptoms. OPERATIVE PROCEDURE PERFORMED: Left total hip arthroplasty. HOSPITAL COURSE: The patient was admitted on the day of surgery and underwent left total hip arthroplasty that was without complications. The patient's hospital course was without complications as well and they up with physical therapy per the protocol and his pain was controlled. On the day of discharge the patient was doing well. He is going to resume preoperative medications and diet. He will use oral medications for pain control, he will be weightbearing as tolerated to the left lower extremity using his walker, and he will use Xarelto and thromboembolic deterrent stockings (SOCRATES) stockings for 30 days postoperatively for deep venous thrombosis (DVT) prophylaxis. Additionally the patient will follow in the office in two weeks for wound check and staple removal. For further details please refer to the medical record. cc: Jayden Montenegro MD
== END 2018-11-14 12:30 | disposition home or self-care (01) | DRG 467 ==
LOC: M OR 09:06 → M MS5PR 17:20
PROVIDERS: ADMIT Orthopaedic Surgery; ATTEND Internal Medicine
PROC: 0SWB0JZ Revision of Synthetic Substitute in Left Hip Joint, Open Approach (ICD-10-PCS; principal; 2018-11-12 13:00)
PROC: 30233N1 Transfusion of Nonautologous Red Blood Cells into Peripheral Vein, Percutaneous Approach (ICD-10-PCS; 2018-11-13)
DX: T84.061A Wear of articular bearing surface of internal prosthetic left hip joint, initial encounter (principal); D62 Acute posthemorrhagic anemia; Z85.46 Personal history of malignant neoplasm of prostate; Z96.642 Presence of left artificial hip joint; Z79.899 Other long term (current) drug therapy; E11.9 Type 2 diabetes mellitus without complications; E03.9 Hypothyroidism, unspecified; E78.00 Pure hypercholesterolemia, unspecified; Z96.651 Presence of right artificial knee joint; Z96.652 Presence of left artificial knee joint; I95.81 Postprocedural hypotension; Z79.82 Long term (current) use of aspirin; M19.90 Unspecified osteoarthritis, unspecified site; R01.1 Cardiac murmur, unspecified; Y83.1 Surgical operation with implant of artificial internal device as the cause of abnormal reaction of the patient, or of later complication, without mention of misadventure at the time of the procedure

== ENCOUNTER 2018-12-07 15:52 | Emergency (ER) | payer MEDICARE, OTHER ==
[~2018-12-07] VITALS: Ht 170.2 cm; Wt 92.3 kg
[~2018-12-07 15:52] MED LIST changes: -LIDOCAINE 1% MDV 20ML VIAL SQ PRN; +XARE10TA PO
[2018-12-07] MEDS ORDERED: fentaNYL 100 MCG/2 ML INJECTION (J3010) IV ONE ×2 (16:15→18:15)
[2018-12-07 16:46] LABS: HEMATOCRIT 31.6 % (42.0-52.0); HEMOGLOBIN 10.5 g/dl (13.5-17.5); MEAN CORPUSCULAR HEMOGLOBIN 31.8 pg (27.0-33.0); MEAN CORPUSCULAR HGB CONC 33.2 g/dl (32.0-36.5); MEAN CORPUSCULAR VOLUME 95.8 fl (80.0-96.0); PLATELET COUNT, AUTOMATED 266 10^3/uL (150-450); WHITE BLOOD COUNT 13.3 10^3/uL (4.0-10.0)
--- NOTE | 2018-12-07 16:46 | REP ---
Pelvis left hip series: Four views. History: Pain. Postop. Findings: A left hip arthroplasty is seen in place. The arthroplasty components are dislocated with the head posterior and lateral relative to the acetabular component. No fractures seen. Impression: Prosthetic left hip dislocation posteriorly. Electronically Signed by Valentino Nash MD 12/07/2018 04:37 P
[2018-12-07 17:02] LABS: INR 1.13; PROTHROMBIN TIME 14.2 SECONDS (11.8-14.0)
[2018-12-07 17:10] LABS: BLOOD UREA NITROGEN 19 MG/DL (7-18); CALCIUM LEVEL 8.7 MG/DL (8.8-10.2); CARBON DIOXIDE LEVEL 25 MEQ/L (21-32); CHLORIDE LEVEL 107 MEQ/L (98-107); CREATININE FOR GFR 0.96 MG/DL (0.70-1.30); GLOMERULAR FILTRATION RATE > 60.0 (>42); GLUCOSE, FASTING 143 MG/DL (70-100); POTASSIUM SERUM 4.9 MEQ/L (3.5-5.1); SODIUM LEVEL 137 MEQ/L (136-145)
[2018-12-07] MEDS ORDERED: NS 1,000 ML IV SCH (18:04)
[2018-12-07] MEDS: PROPOFOL 200 MG/20 ML VIAL IV PRN ×5 (18:23→18:45)
[2018-12-07 20:19] VITALS: BP 123/76
--- NOTE | 2018-12-08 09:13 | REP ---
Left hip: Two views. History: Hip pain. Comparison study: 04:28 p.m. films on this date as well as prior radiographs from November 12, 2018. Findings: The left hip arthroplasty is well aligned. Position is unchanged from the postop films November 12, 2018. No fracture or dislocation is apparent. There are periarticular soft tissue ossicles again seen unchanged. No bony destructive lesion. Impression: Status post reduction left hip arthroplasty. No fracture seen. Electronically Signed by Valentino Nash MD 12/08/2018 09:04 A
== END 2018-12-07 20:28 | disposition home or self-care (01) ==
LOC: EDBD 15:52 → M ED 15:52
DX: S73.005A Unspecified dislocation of left hip, initial encounter (principal); Z96.642 Presence of left artificial hip joint; X58.XXXA Exposure to other specified factors, initial encounter; Y92.099 Unspecified place in other non-institutional residence as the place of occurrence of the external cause; Y93.89 Activity, other specified; Y99.9 Unspecified external cause status; E11.9 Type 2 diabetes mellitus without complications; E03.9 Hypothyroidism, unspecified; E78.5 Hyperlipidemia, unspecified; Z85.46 Personal history of malignant neoplasm of prostate; Z87.891 Personal history of nicotine dependence; Z79.02 Long term (current) use of antithrombotics/antiplatelets; Z79.84 Long term (current) use of oral hypoglycemic drugs; Z79.899 Other long term (current) drug therapy
CPT/HCPCS: 27266; 73502; 80048; 85027; 85610; 85730; 86140; 86850; 86900; 86901; 93041; 94760; 96374; 96376; 99152; 99153; 99285; J3010

== ENCOUNTER → 2018-12-12 | Outpatient (REF) | payer OTHER ==
[2018-12-12 11:37] LABS: BASO % 0.3 % (0.0-1.0); EOS # 0.3 10^3/uL (0.0-0.50); EOS % 3.6 % (0.0-3.0); HEMATOCRIT 30.8 % (42.0-52.0); HEMOGLOBIN 9.6 g/dl (13.5-17.5); LYMPH # 2.5 10^3/uL (1.5-4.5); LYMPH % 34.6 % (24.0-44.0); MEAN CORPUSCULAR HEMOGLOBIN 30.3 pg (27.0-33.0); MEAN CORPUSCULAR HGB CONC 31.2 g/dl (32.0-36.5); MEAN CORPUSCULAR VOLUME 97.2 fl (80.0-96.0); MONO # 0.8 10^3/uL (0.0-0.8); MONO % 11.3 % (0.0-5.0); NEUTROPHILS # 3.6 10^3/uL (1.8-7.7); NEUTROPHILS % 49.5 % (36.0-66.0); PLATELET COUNT, AUTOMATED 202 10^3/uL (150-450); RED BLOOD COUNT 3.17 10^6/uL (4.30-6.10); WHITE BLOOD COUNT 7.3 10^3/uL (4.0-10.0)
[2018-12-12 12:16] LABS: ERYTHROCYTE SEDIMENTATION RATE 33 mm/hr (0-20)
== END ==
LOC: M LABDRAW1 09:28
PROVIDERS: ATTEND Orthopaedic Surgery
DX: Z96.642 Presence of left artificial hip joint (principal)

== ENCOUNTER 2019-04-16 10:02 | Emergency (ER) | payer OTHER ==
[~2019-04-16] VITALS: Ht 170.2 cm; Wt 93.2 kg
[~2019-04-16 10:02] MED LIST changes: -SIMV40TA2 PO; +SIMV40TA20 PO
[2019-04-16] MEDS ORDERED: METF-791 PO (10:15)
[2019-04-16] MEDS ORDERED: LEVO50TA5 PO (10:15)
[2019-04-16] MEDS ORDERED: ASPI81TA85 PO (10:15)
[2019-04-16] MEDS ORDERED: LEVO112T2 PO (10:15)
[2019-04-16] MEDS ORDERED: LIDOCAINE 2% MDV 20 ML VIAL SC ONE (10:15)
--- NOTE | 2019-04-16 11:19 | REP ---
Pelvis left hip: Three views. History: Trauma. Comparison radiographs December 07, 2018. Findings: AP view of the pelvis and AP and cross-table lateral views of the left hip demonstrate a posterior prosthetic left hip joint dislocation. No fracture is appreciated. Impression: Posterior dislocation prosthetic left hip joint. Electronically Signed by Valentino Nash MD 04/16/2019 03:24 P
[2019-04-16] MEDS ORDERED: NS 1,000 ML IV SCH (11:58)
[2019-04-16] MEDS ORDERED: PROPOFOL 200 MG/20 ML VIAL IV PRN (12:00)
[2019-04-16] MEDS ORDERED: KETAMINE HCL 200 MG/20 ML VIAL IV ONE ×2 (12:15→12:30)
--- NOTE | 2019-04-16 13:36 | REP ---
LEFT HIP, SINGLE VIEW: Single portable view of the left hip is performed. There appears to be reduction of the previously noted posterior dislocation with the prosthetic femoral head now aligned with the prosthetic acetabulum. No fracture is seen of the visualized osseous structures. Electronically Signed by Tre Krueger MD 04/17/2019 11:21 A
--- NOTE | 2019-04-16 14:19 | REP ---
CT facial bones: 04/16/2019. Indication: Face trauma. Comparison: None. Findings: Nondisplaced angulated anterior bilateral nasal bone fractures are present which are age indeterminate. No additional facial bone fractures are present. Small retention cyst within the right maxillary sinus are noted. There is mild leftward deviation of the nasal septum. No post traumatic ocular, intraorbital or intracranial abnormalities are detected. Radiopaque punctate foreign bodies are noted within the anterior scalp as well as between the superior orbits. Impression: Nondisplaced angulated age indeterminate is a bone fractures. Electronically Signed by Morgan Marie DO 04/16/2019 02:10 P
[2019-04-16] MEDS ORDERED: KEFL500C17 PO (14:41)
[2019-04-16 14:56] VITALS: BP 116/64
== END 2019-04-16 15:03 | disposition home or self-care (01) ==
LOC: M ED 10:02 → EDBD 10:02 → M ED 15:03
DX: T84.021A Dislocation of internal left hip prosthesis, initial encounter (principal); S02.2XXA Fracture of nasal bones, initial encounter for closed fracture; Y92.009 Unspecified place in unspecified non-institutional (private) residence as the place of occurrence of the external cause; X50.1XXA Overexertion from prolonged static or awkward postures, initial encounter; I10 Essential (primary) hypertension; E03.9 Hypothyroidism, unspecified; Z79.82 Long term (current) use of aspirin; Z79.84 Long term (current) use of oral hypoglycemic drugs; Z79.899 Other long term (current) drug therapy; Z85.46 Personal history of malignant neoplasm of prostate; Z96.643 Presence of artificial hip joint, bilateral

== ENCOUNTER 2019-07-23 08:08 | Emergency (ER) | payer OTHER ==
[~2019-07-23 08:08] MED LIST changes: -ASPI-225 PO; +ASPI81TA78 PO; +ASPI81TA85 PO; +KEFL500C17 PO; +LEVO112T2 PO; +LEVO50TA5 PO; +METF-791 PO
[2019-07-23 08:59] LABS: HEMATOCRIT 38.9 % (42.0-52.0); HEMOGLOBIN 13.1 g/dl (13.5-17.5); MEAN CORPUSCULAR HEMOGLOBIN 30.5 pg (27.0-33.0); MEAN CORPUSCULAR HGB CONC 33.7 g/dl (32.0-36.5); MEAN CORPUSCULAR VOLUME 90.7 fl (80.0-96.0); PLATELET COUNT, AUTOMATED 172 10^3/uL (150-450); RED BLOOD COUNT 4.29 10^6/uL (4.30-6.10); WHITE BLOOD COUNT 13.7 10^3/uL (4.0-10.0)
--- NOTE | 2019-07-23 09:00 | REP ---
Left hip two views: Comparison is 04/16/2019. There is a total hip arthroplasty. There is posterior superior dislocation of the femoral head component. Electronically Signed by Tre Rivers MD 07/23/2019 08:53 A
[2019-07-23 09:18] LABS: BLOOD UREA NITROGEN 17 MG/DL (7-18); CARBON DIOXIDE LEVEL 26 MEQ/L (21-32); CHLORIDE LEVEL 105 MEQ/L (98-107); GLOMERULAR FILTRATION RATE > 60.0 (>42); GLUCOSE, FASTING 173 MG/DL (70-100); POTASSIUM SERUM 4.2 MEQ/L (3.5-5.1); SODIUM LEVEL 138 MEQ/L (136-145)
[2019-07-23] MEDS ORDERED: NS 1,000 ML IV ONE (09:30)
[2019-07-23] MEDS ORDERED: KETAMINE HCL 200 MG/20 ML VIAL IV ONE (09:30)
[2019-07-23] MEDS ORDERED: propofoL 200 MG/20 ML VIAL IV PRN (09:30)
--- NOTE | 2019-07-23 10:16 | REP ---
Portable left hip: Two views. History: Post reduction. Comparison study April 18 1019 and earlier on today's date. The film earlier today showed a posterior prosthetic left hip dislocation. Findings: The current portably obtained frontal and lateral views demonstrate normal alignment of the prosthetic left hip joint unchanged in appearance from the April 16, 2019 prior study. No acute fracture is seen. Impression: Prosthetic left hip joint is reduced. Electronically Signed by Valentino Nash MD 07/23/2019 10:07 A
[2019-07-23 10:40] VITALS: BP 134/81
== END 2019-07-23 11:48 | disposition home or self-care (01) ==
LOC: M ED 08:08
DX: T84.021A Dislocation of internal left hip prosthesis, initial encounter (principal); X58.XXXA Exposure to other specified factors, initial encounter; Y92.018 Other place in single-family (private) house as the place of occurrence of the external cause; E11.9 Type 2 diabetes mellitus without complications; E03.9 Hypothyroidism, unspecified; E78.9 Disorder of lipoprotein metabolism, unspecified; Z87.891 Personal history of nicotine dependence

== ENCOUNTER → 2020-02-18 | Outpatient (REF) | payer OTHER ==
[~2020-02-18] MED LIST changes: -ASPI81TA85 PO; +ASPI81TA86 PO; -COUM7.5T PO; +COUM7.5T6 PO; -METF-791 PO; +METF-838 PO
[2020-02-18 17:22] LABS: HEMATOCRIT 34.4 % (42.0-52.0); HEMOGLOBIN 10.6 g/dl (13.5-17.5); MEAN CORPUSCULAR HEMOGLOBIN 29.4 pg (27.0-33.0); MEAN CORPUSCULAR HGB CONC 30.8 g/dl (32.0-36.5); MEAN CORPUSCULAR VOLUME 95.6 fl (80.0-96.0); PLATELET COUNT, AUTOMATED 175 10^3/uL (150-450)
[2020-02-18 17:37] LABS: FOLATE 12.8 NG/ML
[2020-02-18 17:43] LABS: WHITE BLOOD COUNT 10.8 10^3/uL (4.0-10.0)
[2020-02-18 18:50] LABS: ATYPICAL LYMPH 3 % (0-5); EOSINOPHILS 1 % (0-3); LYMPHOCYTES 55 % (16-44); MONOCYTES 5 % (0-5); NEUTROPHILS 36 % (28-66)
[2020-02-18 18:51] LABS: PLATELET ESTIMATE NORMAL (NORMAL); POIKILOCYTOSIS 1+
== END ==
LOC: M LAB REF 16:50
PROVIDERS: ATTEND Family Medicine
DX: D64.9 Anemia, unspecified (principal); D72.9 Disorder of white blood cells, unspecified

== ENCOUNTER → 2020-10-07 | Outpatient (CLI) | payer OTHER ==
[~2020-10-07] MED LIST changes: +COVI100V IM; +ECOT81TA5 PO; +LEVO150C PO; -LISI-538 PO; +LISI20TA33 PO; +SYNT112T2 PO; +SYNT150T PO
[2020-10-09 00:07] LABS: PSA TOTAL <0.1 ng/mL (0.0-4.0)
== END ==
LOC: M WUC 10:13
PROVIDERS: ATTEND Physician Assistant
DX: Z85.46 Personal history of malignant neoplasm of prostate (principal)

== ENCOUNTER → 2021-04-11 | Outpatient (REF) | payer OTHER ==
[2021-04-11 13:12] LABS: EOSINOPHILS 1 % (0-3); LYMPHOCYTES 73 % (16-44); MONOCYTES 3 % (0-5); NEUTROPHILS 23 % (28-66); PLATELET ESTIMATE NORMAL (NORMAL)
== END ==
LOC: M LAB REF 12:13
PROVIDERS: ATTEND Family Medicine
DX: C91.10 Chronic lymphocytic leukemia of B-cell type not having achieved remission (principal)

== ENCOUNTER → 2022-06-15 | Outpatient (REF) | payer MEDICARE, OTHER ==
[2022-06-15 19:47] LABS: EOSINOPHILS 2 % (0-3); LYMPHOCYTES 88 % (16-44); MONOCYTES 2 % (0-5); NEUTROPHILS 8 % (28-66); PLATELET ESTIMATE DECREASED (NORMAL); SMUDGE CELLS 1+
== END ==
LOC: M LAB REF 16:14
PROVIDERS: ATTEND Family Medicine
DX: D72.829 Elevated white blood cell count, unspecified (principal)

== ENCOUNTER → 2022-08-14 | Outpatient (CLI) | payer MEDICARE, OTHER ==
[~2022-08-14] MED LIST changes: +FARX1TAB5 PO; +IRON15CH PO; +NIFE15CA PO
== END ==
LOC: M LABSMTC 08:55
PROVIDERS: ATTEND Anesthesiology
DX: Z01.812 Encounter for preprocedural laboratory examination (principal)

== ENCOUNTER 2022-08-17 07:38 | Day surgery (SDC) | payer MEDICARE ==
[~2022-08-17] VITALS: Ht 165.1 cm; Wt 86.2 kg
[~2022-08-17 07:38] MED LIST changes: +NS 1,000 ML IV ONE
[2022-08-17] MEDS ORDERED: propofoL 200 MG/20 ML VIAL As Ordered ONE (07:45)
[2022-08-17] MEDS ORDERED: LIDOCAINE 2% 100MG/5ML SDV (FOR ANES.) As Ordered ONE (07:45)
[2022-08-17] MEDS ORDERED: ePHEDrine SULFATE 25 MG/5 ML(5MG/ML) SYRINGE As Ordered ONE (08:23)
[2022-08-17] MEDS ORDERED: PHENYLephrine 500MCG 5ML (100MCG/ML) SYRINGE As Ordered ONE (08:28)
[2022-08-17 08:50] VITALS: BP 100/58
== END 2022-08-17 09:00 | disposition home or self-care (01) ==
LOC: M OPP 07:38
PROVIDERS: ATTEND Surgery
DX: D50.9 Iron deficiency anemia, unspecified (principal); D12.6 Benign neoplasm of colon, unspecified; K29.70 Gastritis, unspecified, without bleeding; K29.80 Duodenitis without bleeding; E78.00 Pure hypercholesterolemia, unspecified; I10 Essential (primary) hypertension; E03.9 Hypothyroidism, unspecified; E11.9 Type 2 diabetes mellitus without complications; Z79.02 Long term (current) use of antithrombotics/antiplatelets; Z79.82 Long term (current) use of aspirin; Z79.84 Long term (current) use of oral hypoglycemic drugs
CPT/HCPCS: 43239; 45385; 88305; J2370

== ENCOUNTER → 2022-08-31 | Outpatient (CLI) | payer MEDICARE ==
[~2022-08-31] MED LIST changes: -NS 1,000 ML IV ONE
[2022-08-31 15:19] LABS: BASO # 0.1 10^3/uL (0.0-0.2); BASO % 0.1 % (0.0-1.0); EOS # 0.3 10^3/uL (0.0-0.5); EOS % 0.6 % (0.0-3.0); HEMATOCRIT 37.5 % (42.0-52.0); HEMOGLOBIN 12.4 g/dl (13.5-17.5); LYMPH # 41.4 10^3/uL (1.5-5.0); LYMPH % 78.2 % (24.0-44.0); MEAN CORPUSCULAR HEMOGLOBIN 32.5 pg (27.0-33.0); MEAN CORPUSCULAR HGB CONC 33.1 g/dl (32.0-36.5); MEAN CORPUSCULAR VOLUME 98.4 fl (80.0-96.0); MONO % 10.3 % (2.0-8.0); NEUTROPHILS # 5.3 10^3/uL (1.5-8.5); PLATELET COUNT, AUTOMATED 132 10^3/uL (150-450); RED BLOOD COUNT 3.81 10^6/uL (4.30-6.10)
[2022-08-31 15:46] LABS: MONO # 5.5 10^3/uL (0.0-0.8); WHITE BLOOD COUNT 52.9 10^3/uL (4.0-10.0)
== END ==
LOC: M WUC 09:51
PROVIDERS: ATTEND Internal Medicine Hematology & Oncology
DX: C91.10 Chronic lymphocytic leukemia of B-cell type not having achieved remission (principal); D69.6 Thrombocytopenia, unspecified; D50.9 Iron deficiency anemia, unspecified

== ENCOUNTER → 2022-10-12 | Outpatient (REF) | payer MEDICARE ==
[2022-10-12 19:47] LABS: ATYPICAL LYMPH 67 % (0-5); EOSINOPHILS 1 % (0-3); LYMPHOCYTES 18 % (16-44); MONOCYTES 7 % (0-5); NEUTROPHILS 7 % (28-66)
[2022-10-12 19:48] LABS: ANISOCYTOSIS 1+; PLATELET ESTIMATE DECREASED (NORMAL)
[2022-10-12 19:49] LABS: POIKILOCYTOSIS 1+
== END ==
LOC: M LAB REF 16:18
PROVIDERS: ATTEND Family Medicine
DX: C91.10 Chronic lymphocytic leukemia of B-cell type not having achieved remission (principal)

== ENCOUNTER → 2022-10-16 | Outpatient (REF) | payer MEDICARE ==
[2022-10-16 20:50] LABS: ATYPICAL LYMPH 6 % (0-5); LYMPHOCYTES 75 % (16-44); MONOCYTES 4 % (0-5); NEUTROPHILS 15 % (28-66); PLATELET ESTIMATE DECREASED (NORMAL)
[2022-10-19 14:28] LABS: HEMOGLOBIN A1c 6.3 % (4.0-6.0)
== END ==
LOC: M LAB REF 16:18
PROVIDERS: ATTEND Family Medicine
DX: C91.10 Chronic lymphocytic leukemia of B-cell type not having achieved remission (principal); Z79.899 Other long term (current) drug therapy

== ENCOUNTER 2023-04-12 09:05 | Day surgery (SDC) | payer MEDICARE ==
[~2023-04-12] VITALS: Ht 165.1 cm; Wt 82.6 kg
[~2023-04-12 09:05] MED LIST changes: +LISI5TAB11 PO; +SYNT175T2 PO
[2023-04-12] MEDS: NS 1,000 ML IV ONE (09:20)
[2023-04-12] MEDS ORDERED: NEXI20CA33 PO (09:25)
[2023-04-12] MEDS ORDERED: fentaNYL 100 MCG/2 ML INJECTION As Ordered ONE (09:46)
[2023-04-12] MEDS ORDERED: propofoL 200 MG/20 ML VIAL As Ordered ONE (10:06)
[2023-04-12] MEDS ORDERED: LIDOCAINE 2% 100MG/5ML SDV (FOR ANES.) As Ordered ONE (10:06)
[2023-04-12 10:10] VITALS: TEMP 96.2
[2023-04-12 10:28] VITALS: BP 97/67; O2SAT 95
== END 2023-04-12 10:44 | disposition home or self-care (01) ==
LOC: M OPP 09:05
PROVIDERS: ATTEND Surgery
DX: D50.9 Iron deficiency anemia, unspecified (principal); E78.5 Hyperlipidemia, unspecified; E11.9 Type 2 diabetes mellitus without complications; E03.9 Hypothyroidism, unspecified; M19.90 Unspecified osteoarthritis, unspecified site; Z79.82 Long term (current) use of aspirin; Z79.84 Long term (current) use of oral hypoglycemic drugs; Z79.890 Hormone replacement therapy; Z79.899 Other long term (current) drug therapy; Z96.643 Presence of artificial hip joint, bilateral
CPT/HCPCS: 43239; 88305; J3010

== ENCOUNTER → 2023-04-24 | Outpatient (REF) | payer MEDICARE ==
[~2023-04-24] MED LIST changes: +NEXI20CA33 PO
[2023-04-24 13:22] LABS: ATYPICAL LYMPH 74 % (0-5); BASOPHILS 1 % (0-1); LYMPHOCYTES 10 % (16-44); MONOCYTES 5 % (0-5); NEUTROPHILS 10 % (28-66)
[2023-04-24 13:24] LABS: PLATELET ESTIMATE DECREASED (NORMAL)
== END ==
LOC: M LAB REF 12:19
PROVIDERS: ATTEND Family Medicine
DX: C91.10 Chronic lymphocytic leukemia of B-cell type not having achieved remission (principal); D50.9 Iron deficiency anemia, unspecified; D69.6 Thrombocytopenia, unspecified

== ENCOUNTER → 2023-07-03 | Outpatient (REF) | payer MEDICARE ==
[2023-07-03 18:50] LABS: RSV AMPLIFICATION NEGATIVE (NEGATIVE)
== END ==
LOC: M LAB REF 16:20
PROVIDERS: ATTEND Nurse Practitioner Family
DX: J01.90 Acute sinusitis, unspecified (principal)

== ENCOUNTER → 2023-07-25 | Outpatient (CLI) | payer MEDICARE ==
[2023-07-25 13:00] LABS: HEMATOCRIT 35.3 % (42.0-52.0); HEMOGLOBIN 11.4 g/dl (13.5-17.5); MEAN CORPUSCULAR HGB CONC 32.3 g/dl (32.0-36.5); MEAN CORPUSCULAR VOLUME 105.4 fl (80.0-96.0); PLATELET COUNT, AUTOMATED 135 10^3/uL (150-450); RED BLOOD COUNT 3.35 10^6/uL (4.30-6.10)
[2023-07-25 13:09] LABS: WHITE BLOOD COUNT 60.3 10^3/uL (4.0-10.0)
== END ==
LOC: M WUC 09:41
PROVIDERS: ATTEND Internal Medicine Hematology & Oncology
DX: C91.10 Chronic lymphocytic leukemia of B-cell type not having achieved remission (principal); D50.9 Iron deficiency anemia, unspecified; D69.6 Thrombocytopenia, unspecified

== ENCOUNTER → 2023-09-24 | Outpatient (CLI) | payer MEDICARE ==
[~2023-09-24] MED LIST changes: +E-Z-GAS II EFFERVESCENT PACKET (SODIUM BICARB./CITRIC ACID/SIMETHICONE) As Ordered ONE; +E-Z-HD 98% w/w 340GM SUSP BTL As Ordered ONE; +E-Z-PAQUE 96% w/w SUSP 176GM BTL As Ordered ONE
== END ==
LOC: M RAD 08:42
PROVIDERS: ATTEND Internal Medicine Cardiovascular Disease
DX: D50.0 Iron deficiency anemia secondary to blood loss (chronic) (principal); K21.9 Gastro-esophageal reflux disease without esophagitis

== ENCOUNTER → 2023-10-18 | Outpatient (REF) | payer MEDICARE ==
[~2023-10-18] MED LIST changes: -E-Z-GAS II EFFERVESCENT PACKET (SODIUM BICARB./CITRIC ACID/SIMETHICONE) As Ordered ONE; -E-Z-HD 98% w/w 340GM SUSP BTL As Ordered ONE; -E-Z-PAQUE 96% w/w SUSP 176GM BTL As Ordered ONE
[2023-10-18 14:19] LABS: ATYPICAL LYMPH 21 % (0-5); LYMPHOCYTES 63 % (16-44); MONOCYTES 3 % (0-5); NEUTROPHILS 13 % (28-66)
[2023-10-18 14:20] LABS: SCHISTOCYTES 1+
[2023-10-18 14:22] LABS: PLATELET ESTIMATE NORMAL (NORMAL)
[2023-10-18 14:24] LABS: SMUDGE CELLS 2+
== END ==
LOC: M LAB REF 12:41
PROVIDERS: ATTEND Family Medicine
DX: C91.10 Chronic lymphocytic leukemia of B-cell type not having achieved remission (principal); D72.9 Disorder of white blood cells, unspecified

== ENCOUNTER → 2023-11-26 | Outpatient (CLI) | payer MEDICARE ==
[2023-11-26 12:49] LABS: FERRITIN 204.2 NG/ML (10.5-307.3)
[2023-11-26 13:42] LABS: BASO # 0.1 10^3/uL (0.0-0.2); BASO % 0.1 % (0.0-1.0); EOS # 0.4 10^3/uL (0.0-0.5); EOS % 0.4 % (0.0-3.0); HEMATOCRIT 26.5 % (42.0-52.0); HEMOGLOBIN 8.3 g/dl (13.5-17.5); LYMPH # 88.6 10^3/uL (1.5-5.0); LYMPH % 76.8 % (24.0-44.0); MEAN CORPUSCULAR HEMOGLOBIN 31.9 pg (27.0-33.0); MEAN CORPUSCULAR HGB CONC 31.3 g/dl (32.0-36.5); MEAN CORPUSCULAR VOLUME 101.9 fl (80.0-96.0); MONO # 19.1 10^3/uL (0.0-0.8); MONO % 16.5 % (2.0-8.0); NEUTROPHILS # 6.4 10^3/uL (1.5-8.5); NEUTROPHILS % 5.5 % (36.0-66.0); PLATELET COUNT, AUTOMATED 156 10^3/uL (150-450); WHITE BLOOD COUNT 115.3 10^3/uL (4.0-10.0)
== END ==
LOC: M WUC 09:31
PROVIDERS: ATTEND Nurse Practitioner
DX: C91.10 Chronic lymphocytic leukemia of B-cell type not having achieved remission (principal); D50.9 Iron deficiency anemia, unspecified; D69.6 Thrombocytopenia, unspecified

== ENCOUNTER → 2023-12-27 | Outpatient (CLI) | payer MEDICARE ==
[2023-12-27 13:50] LABS: HEMATOCRIT 32.8 % (42.0-52.0); HEMOGLOBIN 10.1 g/dl (13.5-17.5); MEAN CORPUSCULAR HEMOGLOBIN 32.4 pg (27.0-33.0); MEAN CORPUSCULAR HGB CONC 30.8 g/dl (32.0-36.5); MEAN CORPUSCULAR VOLUME 105.1 fl (80.0-96.0); PLATELET COUNT, AUTOMATED 144 10^3/uL (150-450); RED BLOOD COUNT 3.12 10^6/uL (4.30-6.10)
[2023-12-27 14:01] LABS: WHITE BLOOD COUNT 76.6 10^3/uL (4.0-10.0)
== END ==
LOC: M WUC 09:30
PROVIDERS: ATTEND Internal Medicine Hematology & Oncology
DX: C91.10 Chronic lymphocytic leukemia of B-cell type not having achieved remission (principal); D50.9 Iron deficiency anemia, unspecified; D69.6 Thrombocytopenia, unspecified

== ENCOUNTER → 2024-01-04 | Outpatient (CLI) | payer MEDICARE ==
[~2024-01-04] MED LIST changes: +PROHANCE 279.3MG/ML 15ML VIAL As Ordered ONE
== END ==
LOC: M RAD 12:29
PROVIDERS: ATTEND Internal Medicine Hematology & Oncology
DX: K86.89 Other specified diseases of pancreas (principal); R16.1 Splenomegaly, not elsewhere classified; R93.5 Abnormal findings on diagnostic imaging of other abdominal regions, including retroperitoneum
CPT/HCPCS: 74183; A9576

== ENCOUNTER → 2024-01-15 | Outpatient (CLI) | payer MEDICARE ==
[~2024-01-15] MED LIST changes: -PROHANCE 279.3MG/ML 15ML VIAL As Ordered ONE
[2024-01-15 13:01] LABS: HEMATOCRIT 34.6 % (42.0-52.0); MEAN CORPUSCULAR HEMOGLOBIN 32.4 pg (27.0-33.0); MEAN CORPUSCULAR HGB CONC 31.8 g/dl (32.0-36.5); MEAN CORPUSCULAR VOLUME 102.1 fl (80.0-96.0); PLATELET COUNT, AUTOMATED 130 10^3/uL (150-450); RED BLOOD COUNT 3.39 10^6/uL (4.30-6.10)
[2024-01-15 13:34] LABS: WHITE BLOOD COUNT 83.1 10^3/uL (4.0-10.0)
== END ==
LOC: M PLALAB 10:26
PROVIDERS: ATTEND Internal Medicine Hematology & Oncology
DX: C91.10 Chronic lymphocytic leukemia of B-cell type not having achieved remission (principal); D50.9 Iron deficiency anemia, unspecified; D69.6 Thrombocytopenia, unspecified

== ENCOUNTER → 2024-02-04 | Outpatient (CLI) | payer MEDICARE ==
[2024-02-04 15:34] LABS: HEMATOCRIT 25.3 % (42.0-52.0); HEMOGLOBIN 7.9 g/dl (13.5-17.5); MEAN CORPUSCULAR HEMOGLOBIN 33.8 pg (27.0-33.0); MEAN CORPUSCULAR HGB CONC 31.2 g/dl (32.0-36.5); MEAN CORPUSCULAR VOLUME 108.1 fl (80.0-96.0); PLATELET COUNT, AUTOMATED 157 10^3/uL (150-450); RED BLOOD COUNT 2.34 10^6/uL (4.30-6.10)
[2024-02-04 15:44] LABS: WHITE BLOOD COUNT 78.9 10^3/uL (4.0-10.0)
== END ==
LOC: M PLALAB 13:58
PROVIDERS: ATTEND Internal Medicine Hematology & Oncology
DX: D50.9 Iron deficiency anemia, unspecified (principal); C91.10 Chronic lymphocytic leukemia of B-cell type not having achieved remission; D69.6 Thrombocytopenia, unspecified

== ENCOUNTER → 2024-02-14 | Outpatient (CLI) | payer MEDICARE ==
[2024-02-14 13:24] LABS: BASO # 0.1 10^3/uL (0.0-0.2); BASO % 0.1 % (0.0-1.0); EOS # 0.3 10^3/uL (0.0-0.5); EOS % 0.4 % (0.0-3.0); HEMATOCRIT 28.2 % (42.0-52.0); HEMOGLOBIN 8.7 g/dl (13.5-17.5); LYMPH # 60.1 10^3/uL (1.5-5.0); LYMPH % 75.4 % (24.0-44.0); MEAN CORPUSCULAR HEMOGLOBIN 33.3 pg (27.0-33.0); MEAN CORPUSCULAR HGB CONC 30.9 g/dl (32.0-36.5); MONO % 16.9 % (2.0-8.0); NEUTROPHILS # 5.1 10^3/uL (1.5-8.5); NEUTROPHILS % 6.4 % (36.0-66.0); PLATELET COUNT, AUTOMATED 121 10^3/uL (150-450); RED BLOOD COUNT 2.61 10^6/uL (4.30-6.10)
[2024-02-14 13:33] LABS: MONO # 13.4 10^3/uL (0.0-0.8)
[2024-02-14 13:35] LABS: WHITE BLOOD COUNT 79.6 10^3/uL (4.0-10.0)
== END ==
LOC: M WUC 09:22
PROVIDERS: ATTEND Internal Medicine Hematology & Oncology
DX: C91.10 Chronic lymphocytic leukemia of B-cell type not having achieved remission (principal); D50.9 Iron deficiency anemia, unspecified; D69.6 Thrombocytopenia, unspecified

== ENCOUNTER → 2024-02-26 | Outpatient (CLI) | payer MEDICARE ==
[2024-02-26 12:05] LABS: EOS # 0.3 10^3/uL (0.0-0.5); EOS % 0.5 % (0.0-3.0); HEMATOCRIT 30.9 % (42.0-52.0); HEMOGLOBIN 9.6 g/dl (13.5-17.5); LYMPH # 52.6 10^3/uL (1.5-5.0); LYMPH % 77.5 % (24.0-44.0); MEAN CORPUSCULAR HGB CONC 31.1 g/dl (32.0-36.5); MEAN CORPUSCULAR VOLUME 106.2 fl (80.0-96.0); MONO % 15.5 % (2.0-8.0); NEUTROPHILS # 3.9 10^3/uL (1.5-8.5); NEUTROPHILS % 5.8 % (36.0-66.0); PLATELET COUNT, AUTOMATED 118 10^3/uL (150-450); RED BLOOD COUNT 2.91 10^6/uL (4.30-6.10)
[2024-02-26 12:06] LABS: BLOOD UREA NITROGEN 27 MG/DL (9-23); CALCIUM LEVEL 8.8 MG/DL (8.3-10.6); CARBON DIOXIDE LEVEL 23 MMOL/L (20-31); CHLORIDE LEVEL 109 MMOL/L (98-107); CREATININE FOR GFR 1.12 MG/DL (0.70-1.30); GLOMERULAR FILTRATION RATE > 60.0 (>42); GLUCOSE, FASTING 115 MG/DL (74-106); PHOSPHORUS LEVEL 4.8 MG/DL (2.4-5.1); POTASSIUM SERUM 4.5 MMOL/L (3.5-5.1); SODIUM LEVEL 138 MMOL/L (136-145)
[2024-02-26 13:13] LABS: MONO # 10.6 10^3/uL (0.0-0.8); WHITE BLOOD COUNT 67.9 10^3/uL (4.0-10.0)
== END ==
LOC: M WUC 09:34
PROVIDERS: ATTEND Internal Medicine Cardiovascular Disease
DX: D50.9 Iron deficiency anemia, unspecified (principal); I25.10 Atherosclerotic heart disease of native coronary artery without angina pectoris; I25.6 Silent myocardial ischemia; I11.9 Hypertensive heart disease without heart failure

== ENCOUNTER → 2024-03-17 | Outpatient (REF) | payer MEDICARE ==
[2024-03-17 13:22] LABS: BASO # 0.1 10^3/uL (0.0-0.2); BASO % 0.2 % (0.0-1.0); EOS # 0.4 10^3/uL (0.0-0.5); EOS % 0.5 % (0.0-3.0); HEMATOCRIT 27.6 % (42.0-52.0); HEMOGLOBIN 8.5 g/dl (13.5-17.5); LYMPH # 64.2 10^3/uL (1.5-5.0); LYMPH % 77.1 % (24.0-44.0); MEAN CORPUSCULAR HEMOGLOBIN 32.9 pg (27.0-33.0); MEAN CORPUSCULAR HGB CONC 30.8 g/dl (32.0-36.5); MONO % 15.6 % (2.0-8.0); NEUTROPHILS # 4.9 10^3/uL (1.5-8.5); NEUTROPHILS % 5.9 % (36.0-66.0); PLATELET COUNT, AUTOMATED 134 10^3/uL (150-450); RED BLOOD COUNT 2.58 10^6/uL (4.30-6.10)
[2024-03-17 14:47] LABS: WHITE BLOOD COUNT 83.2 10^3/uL (4.0-10.0)
== END ==
LOC: M LAB REF 12:34
PROVIDERS: ATTEND Family Medicine
DX: C91.10 Chronic lymphocytic leukemia of B-cell type not having achieved remission (principal)

== ENCOUNTER → 2024-03-24 | Outpatient (CLI) | payer MEDICARE ==
[2024-03-24 13:44] LABS: HEMATOCRIT 26.9 % (42.0-52.0); HEMOGLOBIN 8.1 g/dl (13.5-17.5); MEAN CORPUSCULAR HEMOGLOBIN 33.3 pg (27.0-33.0); MEAN CORPUSCULAR HGB CONC 30.1 g/dl (32.0-36.5); MEAN CORPUSCULAR VOLUME 110.7 fl (80.0-96.0); PLATELET COUNT, AUTOMATED 143 10^3/uL (150-450); RED BLOOD COUNT 2.43 10^6/uL (4.30-6.10)
[2024-03-24 14:03] LABS: WHITE BLOOD COUNT 73.7 10^3/uL (4.0-10.0)
[2024-03-24 14:06] LABS: ATYPICAL LYMPH 1 % (0-5); LYMPHOCYTES 88 % (16-44); MONOCYTES 2 % (0-5); NEUTROPHILS 8 % (28-66); PLATELET ESTIMATE DECREASED (NORMAL)
[2024-03-24 14:07] LABS: ANISOCYTOSIS 1+; HYPOCHROMASIA 1+; TEAR DROP CELLS 1+
== END ==
LOC: M WUC 09:46
PROVIDERS: ATTEND Internal Medicine Hematology & Oncology
DX: C91.10 Chronic lymphocytic leukemia of B-cell type not having achieved remission (principal); D50.9 Iron deficiency anemia, unspecified; D69.6 Thrombocytopenia, unspecified

== ENCOUNTER → 2024-03-31 | Outpatient (CLI) | payer MEDICARE ==
[2024-03-31 17:28] LABS: HEMATOCRIT 24.4 % (42.0-52.0); HEMOGLOBIN 7.3 g/dl (13.5-17.5); MEAN CORPUSCULAR HEMOGLOBIN 34.1 pg (27.0-33.0); MEAN CORPUSCULAR HGB CONC 29.9 g/dl (32.0-36.5); PLATELET COUNT, AUTOMATED 139 10^3/uL (150-450); RED BLOOD COUNT 2.14 10^6/uL (4.30-6.10)
[2024-03-31 17:46] LABS: WHITE BLOOD COUNT 72.2 10^3/uL (4.0-10.0)
[2024-03-31 19:22] LABS: ANISOCYTOSIS 2+; EOSINOPHILS 1 % (0-3); LYMPHOCYTES 85 % (16-44); MONOCYTES 4 % (0-5); NEUTROPHILS 9 % (28-66)
[2024-03-31 19:24] LABS: PLATELET ESTIMATE DECREASED (NORMAL); POLYCHROMASIA 1+
== END ==
LOC: M WUC 11:07
PROVIDERS: ATTEND Internal Medicine Hematology & Oncology
DX: C91.10 Chronic lymphocytic leukemia of B-cell type not having achieved remission (principal); D50.9 Iron deficiency anemia, unspecified; D69.6 Thrombocytopenia, unspecified

== ENCOUNTER → 2024-04-08 | Outpatient (CLI) | payer MEDICARE ==
[2024-04-08 17:46] LABS: HEMATOCRIT 27.2 % (42.0-52.0); HEMOGLOBIN 8.1 g/dl (13.5-17.5); MEAN CORPUSCULAR HEMOGLOBIN 33.1 pg (27.0-33.0); MEAN CORPUSCULAR HGB CONC 29.8 g/dl (32.0-36.5); PLATELET COUNT, AUTOMATED 154 10^3/uL (150-450); RED BLOOD COUNT 2.45 10^6/uL (4.30-6.10)
[2024-04-08 17:55] LABS: WHITE BLOOD COUNT 70.5 10^3/uL (4.0-10.0)
[2024-04-08 18:57] LABS: BLAST CELLS 1 % (0-0); LYMPHOCYTES 93 % (16-44); NEUTROPHILS 5 % (28-66)
[2024-04-08 18:58] LABS: ANISOCYTOSIS 2+; PLATELET ESTIMATE NORMAL (NORMAL)
== END ==
LOC: M WUC 11:20
PROVIDERS: ATTEND Internal Medicine Hematology & Oncology
DX: C91.10 Chronic lymphocytic leukemia of B-cell type not having achieved remission (principal); D50.9 Iron deficiency anemia, unspecified; D69.6 Thrombocytopenia, unspecified

== ENCOUNTER → 2024-04-18 | Outpatient (CLI) | payer MEDICARE ==
[2024-04-18 12:43] LABS: HEMATOCRIT 27.8 % (42.0-52.0); HEMOGLOBIN 8.4 g/dl (13.5-17.5); MEAN CORPUSCULAR HEMOGLOBIN 32.9 pg (27.0-33.0); MEAN CORPUSCULAR HGB CONC 30.2 g/dl (32.0-36.5); PLATELET COUNT, AUTOMATED 159 10^3/uL (150-450); RED BLOOD COUNT 2.55 10^6/uL (4.30-6.10)
[2024-04-18 13:29] LABS: LYMPHOCYTES 92 % (16-44); METAMYELOCYTES 1 % (0-0); MONOCYTES 1 % (0-5); NEUTROPHILS 6 % (28-66)
[2024-04-18 13:30] LABS: ANISOCYTOSIS 2+; HYPOCHROMASIA 1+; PLATELET ESTIMATE NORMAL (NORMAL)
[2024-04-18 13:31] LABS: POLYCHROMASIA 1+; TEAR DROP CELLS 1+
== END ==
LOC: M WUC 10:13
PROVIDERS: ATTEND Internal Medicine Hematology & Oncology
DX: C91.10 Chronic lymphocytic leukemia of B-cell type not having achieved remission (principal); D50.9 Iron deficiency anemia, unspecified; D69.6 Thrombocytopenia, unspecified

== ENCOUNTER → 2024-04-21 | Outpatient (CLI) | payer MEDICARE ==
[2024-04-21 18:54] LABS: HEMATOCRIT 26.7 % (42.0-52.0); HEMOGLOBIN 7.8 g/dl (13.5-17.5); MEAN CORPUSCULAR HEMOGLOBIN 32.6 pg (27.0-33.0); MEAN CORPUSCULAR HGB CONC 29.2 g/dl (32.0-36.5); MEAN CORPUSCULAR VOLUME 111.7 fl (80.0-96.0); PLATELET COUNT, AUTOMATED 142 10^3/uL (150-450); RED BLOOD COUNT 2.39 10^6/uL (4.30-6.10)
[2024-04-21 19:07] LABS: WHITE BLOOD COUNT 58.4 10^3/uL (4.0-10.0)
[2024-04-21 20:14] LABS: LYMPHOCYTES 84 % (16-44); MONOCYTES 6 % (0-5)
[2024-04-21 20:15] LABS: ANISOCYTOSIS 1+; NEUTROPHILS 7 % (28-66)
[2024-04-21 20:16] LABS: ATYPICAL LYMPH 2 % (0-5)
[2024-04-21 20:17] LABS: POIKILOCYTOSIS 1+
[2024-04-21 20:19] LABS: PLATELET ESTIMATE DECREASED (NORMAL)
== END ==
LOC: M WUC 10:32
PROVIDERS: ATTEND Internal Medicine Hematology & Oncology
DX: C91.10 Chronic lymphocytic leukemia of B-cell type not having achieved remission (principal); D50.9 Iron deficiency anemia, unspecified; D69.6 Thrombocytopenia, unspecified

== ENCOUNTER → 2024-05-06 | Outpatient (REF) | payer MEDICARE ==
[2024-05-06 19:06] LABS: BASO # 0.1 10^3/uL (0.0-0.2); BASO % 0.1 % (0.0-1.0); EOS # 0.3 10^3/uL (0.0-0.5); EOS % 0.4 % (0.0-3.0); HEMATOCRIT 30.1 % (42.0-52.0); HEMOGLOBIN 8.7 g/dl (13.5-17.5); LYMPH # 58.8 10^3/uL (1.5-5.0); LYMPH % 78.1 % (24.0-44.0); MEAN CORPUSCULAR HEMOGLOBIN 32.2 pg (27.0-33.0); MEAN CORPUSCULAR HGB CONC 28.9 g/dl (32.0-36.5); MEAN CORPUSCULAR VOLUME 111.5 fl (80.0-96.0); MONO % 12.2 % (2.0-8.0); NEUTROPHILS % 7.9 % (36.0-66.0); PLATELET COUNT, AUTOMATED 157 10^3/uL (150-450)
[2024-05-06 19:51] LABS: MONO # 9.2 10^3/uL (0.0-0.8); WHITE BLOOD COUNT 75.4 10^3/uL (4.0-10.0)
== END ==
LOC: M LABWUC 16:49
PROVIDERS: ATTEND Internal Medicine Hematology & Oncology
DX: C91.10 Chronic lymphocytic leukemia of B-cell type not having achieved remission (principal); D50.9 Iron deficiency anemia, unspecified; D69.6 Thrombocytopenia, unspecified

== ENCOUNTER → 2024-05-26 | Outpatient (CLI) | payer MEDICARE ==
[2024-05-26 12:52] LABS: BASO % 0.1 % (0.0-1.0); EOS # 0.3 10^3/uL (0.0-0.5); EOS % 0.5 % (0.0-3.0); HEMATOCRIT 32.8 % (42.0-52.0); HEMOGLOBIN 10.1 g/dl (13.5-17.5); LYMPH # 38.6 10^3/uL (1.5-5.0); LYMPH % 83.8 % (24.0-44.0); MEAN CORPUSCULAR HEMOGLOBIN 32.3 pg (27.0-33.0); MEAN CORPUSCULAR HGB CONC 30.8 g/dl (32.0-36.5); MEAN CORPUSCULAR VOLUME 104.8 fl (80.0-96.0); MONO % 11.1 % (2.0-8.0); NEUTROPHILS # 1.9 10^3/uL (1.5-8.5); NEUTROPHILS % 4.2 % (36.0-66.0); PLATELET COUNT, AUTOMATED 116 10^3/uL (150-450); RED BLOOD COUNT 3.13 10^6/uL (4.30-6.10)
[2024-05-26 13:01] LABS: MONO # 5.1 10^3/uL (0.0-0.8); WHITE BLOOD COUNT 46.1 10^3/uL (4.0-10.0)
== END ==
LOC: M WUC 10:18
PROVIDERS: ATTEND Internal Medicine Hematology & Oncology
DX: C91.10 Chronic lymphocytic leukemia of B-cell type not having achieved remission (principal); D50.9 Iron deficiency anemia, unspecified; D69.6 Thrombocytopenia, unspecified

== ENCOUNTER → 2024-06-02 | Outpatient (CLI) | payer MEDICARE ==
[2024-06-02 16:58] LABS: HEMATOCRIT 34.3 % (42.0-52.0); HEMOGLOBIN 10.3 g/dl (13.5-17.5); MEAN CORPUSCULAR HEMOGLOBIN 30.8 pg (27.0-33.0); MEAN CORPUSCULAR VOLUME 102.7 fl (80.0-96.0); PLATELET COUNT, AUTOMATED 114 10^3/uL (150-450); RED BLOOD COUNT 3.34 10^6/uL (4.30-6.10)
[2024-06-02 17:16] LABS: WHITE BLOOD COUNT 43.8 10^3/uL (4.0-10.0)
[2024-06-02 17:21] LABS: BASO % 0.1 % (0.0-1.0); EOS # 0.3 10^3/uL (0.0-0.5); EOS % 0.7 % (0.0-3.0); LYMPH # 35.3 10^3/uL (1.5-5.0); LYMPH % 80.5 % (24.0-44.0); MONO % 15.9 % (2.0-8.0); NEUTROPHILS # 1.1 10^3/uL (1.5-8.5); NEUTROPHILS % 2.6 % (36.0-66.0)
== END ==
LOC: M WUC 10:36
PROVIDERS: ATTEND Internal Medicine Hematology & Oncology
DX: C91.00 Acute lymphoblastic leukemia not having achieved remission (principal); D50.9 Iron deficiency anemia, unspecified; D69.6 Thrombocytopenia, unspecified

== ENCOUNTER 2024-06-18 11:54 | Emergency (ER) | payer MEDICARE ==
[~2024-06-18] VITALS: Ht 170.2 cm; Wt 82.9 kg
[2024-06-18] MEDS: AMIODARONE HCL 150 MG in IV 1 EA IV STA (12:45)
[2024-06-18 12:47] LABS: HEMATOCRIT 30.7 % (42.0-52.0); MEAN CORPUSCULAR HGB CONC 32.6 g/dl (32.0-36.5); PLATELET COUNT, AUTOMATED 317 10^3/uL (150-450); RED BLOOD COUNT 3.45 10^6/uL (4.30-6.10)
[2024-06-18 12:51] LABS: WHITE BLOOD COUNT 32.3 10^3/uL (4.0-10.0)
[2024-06-18 12:56] LABS: INR 1.13; PARTIAL THROMBOPLASTIN TIME 29.8 SECONDS (24.8-34.2); PROTHROMBIN TIME 14.8 SECONDS (12.5-14.5)
[2024-06-18 13:13] LABS: ALBUMIN 2.1 G/DL (3.2-5.2); BILIRUBIN,DIRECT 1.1 MG/DL (<0.4); BILIRUBIN,TOTAL 1.7 MG/DL (0.3-1.2); CALCIUM LEVEL 7.4 MG/DL (8.3-10.6); CREATININE FOR GFR 3.37 MG/DL (0.70-1.30); GLOMERULAR FILTRATION RATE 18.9 (>42); MB/CK RELATIVE INDEX 1.65 (< OR =4); POTASSIUM SERUM 5.3 MMOL/L (3.5-5.1)
[2024-06-18 13:24] LABS: ANISOCYTOSIS 1+; ATYPICAL LYMPH 7 % (0-5); LYMPHOCYTES 35 % (16-44); MONOCYTES 6 % (0-5); NEUTROPHILS 48 % (28-66); PLATELET ESTIMATE NORMAL (NORMAL); TOXIC VACUOLATION 2+
[2024-06-18 13:25] LABS: OVALOCYTES 1+
[2024-06-18] MEDS: cefTRIAXone SOD 2 GM in DEXTROSE 5% (D5W) ADV/MINI-BAG 50 ML IV ONE (14:48)
[2024-06-18] MEDS: NS (Normal Saline) 0.9% 1,000 ML IV SCH (15:05)
[2024-06-18 15:31] VITALS: BP 106/66; TEMP 97.1; O2SAT 92
[2024-06-18 15:48] LABS: CK-MB VALUE MASS 2.9 NG/ML (<3.6); MB/CK RELATIVE INDEX 2.63 (< OR =4)
== END 2024-06-18 15:41 | disposition short-term general hospital (02) ==
LOC: M ED 11:54 → EDBD 11:54 → M ED 15:41
DX: I11.0 Hypertensive heart disease with heart failure (principal); N17.9 Acute kidney failure, unspecified; I48.91 Unspecified atrial fibrillation; R91.8 Other nonspecific abnormal finding of lung field; E11.9 Type 2 diabetes mellitus without complications; E78.5 Hyperlipidemia, unspecified; Z85.46 Personal history of malignant neoplasm of prostate; Z85.6 Personal history of leukemia; Z95.1 Presence of aortocoronary bypass graft; Z79.82 Long term (current) use of aspirin; Z79.84 Long term (current) use of oral hypoglycemic drugs; Z79.899 Other long term (current) drug therapy
CPT/HCPCS: 71045; 80048; 80076; 82550; 82553; 83605; 83880; 84484; 85025; 85610; 85730; 87040; 87077; 87154; 87186; 93005; 93041; 94760; 96365; 96367; 99285; J0283; J0696

== ENCOUNTER → 2024-07-28 | Outpatient (REF) ==
[2024-07-28 11:43] LABS: HEMATOCRIT 28.5 % (42.0-52.0); HEMOGLOBIN 8.8 g/dl (13.5-17.5); MEAN CORPUSCULAR HEMOGLOBIN 28.6 pg (27.0-33.0); MEAN CORPUSCULAR HGB CONC 30.9 g/dl (32.0-36.5); MEAN CORPUSCULAR VOLUME 92.5 fl (80.0-96.0); PLATELET COUNT, AUTOMATED 363 10^3/uL (150-450); RED BLOOD COUNT 3.08 10^6/uL (4.30-6.10)
[2024-07-28 12:10] LABS: WHITE BLOOD COUNT 36.3 10^3/uL (4.0-10.0)
[2024-07-28 12:40] LABS: CALCIUM LEVEL 8.7 MG/DL (8.3-10.6); CREATININE FOR GFR 2.5 MG/DL (0.70-1.30); GLOMERULAR FILTRATION RATE 26.6 (>35); POTASSIUM SERUM 4.1 MMOL/L (3.5-5.1)
== END ==
PROVIDERS: ATTEND Physician Assistant
DX: D64.9 Anemia, unspecified (principal)

== ENCOUNTER → 2024-08-04 | Outpatient (REF) ==
[2024-08-04 09:15] LABS: HEMATOCRIT 31.9 % (42.0-52.0); HEMOGLOBIN 9.8 g/dl (13.5-17.5); MEAN CORPUSCULAR HEMOGLOBIN 28.8 pg (27.0-33.0); MEAN CORPUSCULAR HGB CONC 30.7 g/dl (32.0-36.5); MEAN CORPUSCULAR VOLUME 93.8 fl (80.0-96.0); PLATELET COUNT, AUTOMATED 287 10^3/uL (150-450); WHITE BLOOD COUNT 19.2 10^3/uL (4.0-10.0)
[2024-08-04 09:30] LABS: CALCIUM LEVEL 9.7 MG/DL (8.3-10.6); CREATININE FOR GFR 2.15 MG/DL (0.70-1.30); GLOMERULAR FILTRATION RATE 31.6 (>35); POTASSIUM SERUM 4.1 MMOL/L (3.5-5.1)
== END ==
PROVIDERS: ATTEND Physician Assistant
DX: D64.9 Anemia, unspecified (principal)

== ENCOUNTER → 2024-08-25 | Outpatient (REF) ==
[~2024-08-25] MED LIST changes: +ATOR40TA75; +FURO20TA2; +MIDO10TA3 PO; +PANT40TA29 PO
== END ==
PROVIDERS: ATTEND Physician Assistant
DX: N18.9 Chronic kidney disease, unspecified (principal); Z53.8 Procedure and treatment not carried out for other reasons

== ENCOUNTER → 2024-08-27 | Outpatient (REF) ==
[2024-08-27 08:40] LABS: HEMOGLOBIN 8.9 g/dl (13.5-17.5); MEAN CORPUSCULAR HEMOGLOBIN 28.7 pg (27.0-33.0); MEAN CORPUSCULAR HGB CONC 31.8 g/dl (32.0-36.5); MEAN CORPUSCULAR VOLUME 90.3 fl (80.0-96.0); PLATELET COUNT, AUTOMATED 287 10^3/uL (150-450); WHITE BLOOD COUNT 29.8 10^3/uL (4.0-10.0)
[2024-08-27 09:20] LABS: ALKALINE PHOSPHATASE 91 U/L (40-129); ALT/SGPT < 9 U/L (7.0-40); AST/SGOT 13 U/L (<34); BILIRUBIN,TOTAL 0.9 MG/DL (0.3-1.2); BLOOD UREA NITROGEN 59 MG/DL (9-23); CALCIUM LEVEL 8.9 MG/DL (8.3-10.6); CARBON DIOXIDE LEVEL 32 MMOL/L (20-31); CHLORIDE LEVEL 96 MMOL/L (98-107); CREATININE FOR GFR 1.26 MG/DL (0.70-1.30); GLOMERULAR FILTRATION RATE 58.6 (>35); GLUCOSE, FASTING 171 MG/DL (74-106); POTASSIUM SERUM 3.7 MMOL/L (3.5-5.1); SODIUM LEVEL 137 MMOL/L (136-145); TOTAL PROTEIN 6.3 G/DL (5.7-8.2)
[2024-08-27 09:59] LABS: ATYPICAL LYMPH 2 % (0-5); LYMPHOCYTES 77 % (16-44); MONOCYTES 6 % (0-5); NEUTROPHILS 15 % (28-66); PLATELET ESTIMATE NORMAL (NORMAL)
== END ==
PROVIDERS: ATTEND Physician Assistant
DX: N18.9 Chronic kidney disease, unspecified (principal); I11.0 Hypertensive heart disease with heart failure; I50.9 Heart failure, unspecified

== ENCOUNTER → 2024-09-03 | Outpatient (REF) ==
[2024-09-03 08:18] LABS: BLOOD UREA NITROGEN 46 MG/DL (9-23); CALCIUM LEVEL 8.9 MG/DL (8.3-10.6); CARBON DIOXIDE LEVEL 30 MMOL/L (20-31); CHLORIDE LEVEL 97 MMOL/L (98-107); CHOLESTEROL LEVEL 129 MG/DL (<200); CHOLESTEROL RISK RATIO 4.32 (<5); CREATININE FOR GFR 1.16 MG/DL (0.70-1.30); GLOMERULAR FILTRATION RATE > 60.0 (>35); GLUCOSE, FASTING 154 MG/DL (74-106); HDL CHOLESTEROL 29.8 MG/DL (>40); LDL CHOLESTEROL 71.8 MG/DL (<100); NON-HDL-C 99.2 MG/DL; POTASSIUM SERUM 4.1 MMOL/L (3.5-5.1); SODIUM LEVEL 135 MMOL/L (136-145); TRIGLYCERIDES LEVEL 137 MG/DL (<150)
== END ==
PROVIDERS: ATTEND Physician Assistant
DX: I50.9 Heart failure, unspecified (principal); Z79.899 Other long term (current) drug therapy

== ENCOUNTER → 2024-09-08 | Outpatient (REF) | payer MEDICARE, OTHER ==
[2024-09-08 08:50] LABS: HEMATOCRIT 30.5 % (42.0-52.0); HEMOGLOBIN 9.4 g/dl (13.5-17.5); MEAN CORPUSCULAR HGB CONC 30.8 g/dl (32.0-36.5); MEAN CORPUSCULAR VOLUME 90.8 fl (80.0-96.0); PLATELET COUNT, AUTOMATED 275 10^3/uL (150-450); RED BLOOD COUNT 3.36 10^6/uL (4.30-6.10)
[2024-09-08 09:00] LABS: WHITE BLOOD COUNT 33.2 10^3/uL (4.0-10.0)
[2024-09-08 09:24] LABS: CALCIUM LEVEL 8.9 MG/DL (8.3-10.6); CREATININE FOR GFR 1.12 MG/DL (0.70-1.30); GLOMERULAR FILTRATION RATE 66.4 (>35); POTASSIUM SERUM 4.3 MMOL/L (3.5-5.1)
== END ==
PROVIDERS: ATTEND Physician Assistant
DX: D64.9 Anemia, unspecified (principal)

== ENCOUNTER → 2024-09-11 | Outpatient (REF) | PROVIDERS: ATTEND Physician Assistant | DX: R31.9 Hematuria, unspecified (principal) ==

== ENCOUNTER → 2024-09-12 | Outpatient (REF) ==
[2024-09-12 08:19] LABS: HEMATOCRIT 32.7 % (42.0-52.0); HEMOGLOBIN 10.1 g/dl (13.5-17.5); MEAN CORPUSCULAR HEMOGLOBIN 27.7 pg (27.0-33.0); MEAN CORPUSCULAR HGB CONC 30.9 g/dl (32.0-36.5); MEAN CORPUSCULAR VOLUME 89.6 fl (80.0-96.0); PLATELET COUNT, AUTOMATED 345 10^3/uL (150-450); RED BLOOD COUNT 3.65 10^6/uL (4.30-6.10)
[2024-09-12 08:27] LABS: WHITE BLOOD COUNT 45.3 10^3/uL (4.0-10.0)
[2024-09-12 09:00] LABS: CALCIUM LEVEL 9.4 MG/DL (8.3-10.6); CREATININE FOR GFR 1.1 MG/DL (0.70-1.30); GLOMERULAR FILTRATION RATE 67.9 (>35); POTASSIUM SERUM 4.7 MMOL/L (3.5-5.1)
[2024-09-12 09:02] LABS: ANISOCYTOSIS 1+; LYMPHOCYTES 79 % (16-44); MONOCYTES 3 % (0-5); NEUTROPHILS 18 % (28-66); PLATELET ESTIMATE NORMAL (NORMAL)
[2024-09-12 09:03] LABS: HYPOCHROMASIA 1+; POLYCHROMASIA 1+
== END ==
PROVIDERS: ATTEND Physician Assistant
DX: R31.9 Hematuria, unspecified (principal)

== ENCOUNTER → 2024-10-02 | Outpatient (REF) ==
[~2024-10-02] MED LIST changes: -LEVO150C PO; +LEVO150C2 PO; +LIDO1ADH93 TOP
== END ==
LOC: M EKG 09:35
PROVIDERS: ATTEND Physician Assistant
DX: I48.0 Paroxysmal atrial fibrillation (principal)

== ENCOUNTER → 2024-10-02 | Outpatient (REF) | LOC: M EKG 08:55 | PROVIDERS: ATTEND Physician Assistant | DX: Z00.00 Encounter for general adult medical examination without abnormal findings (principal) ==

== ENCOUNTER → 2024-10-06 | Outpatient (REF) ==
[~2024-10-06] MED LIST changes: -LIDO1ADH93 TOP
[2024-10-06 08:22] LABS: HEMATOCRIT 34.7 % (42.0-52.0); HEMOGLOBIN 10.7 g/dl (13.5-17.5); MEAN CORPUSCULAR HEMOGLOBIN 28.8 pg (27.0-33.0); MEAN CORPUSCULAR HGB CONC 30.8 g/dl (32.0-36.5); MEAN CORPUSCULAR VOLUME 93.5 fl (80.0-96.0); PLATELET COUNT, AUTOMATED 145 10^3/uL (150-450); RED BLOOD COUNT 3.71 10^6/uL (4.30-6.10)
[2024-10-06 08:30] LABS: WHITE BLOOD COUNT 31.9 10^3/uL (4.0-10.0)
[2024-10-06 08:49] LABS: CALCIUM LEVEL 9.1 MG/DL (8.3-10.6); CREATININE FOR GFR 1.1 MG/DL (0.70-1.30); GLOMERULAR FILTRATION RATE 67.9 (>35); POTASSIUM SERUM 3.9 MMOL/L (3.5-5.1)
== END ==
PROVIDERS: ATTEND Physician Assistant
DX: D64.9 Anemia, unspecified (principal)

== ENCOUNTER → 2024-10-10 | Outpatient (REF) | payer MEDICARE ==
[~2024-10-10] MED LIST changes: +LIDO1ADH93 TOP
[2024-10-10 13:39] LABS: APPEARANCE, URINE CLOUDY (CLEAR); BACTERIA, URINE AUTO NEGATIVE (NEGATIVE); BILIRUBIN, URINE AUTO NEGATIVE (NEGATIVE); BLOOD, URINE BLOOD 1+ (NEGATIVE); COLOR, URINE YELLOW (YELLOW); GLUCOSE, URINE (UA) AUTO 3+ mg/dL (NEGATIVE); KETONE, URINE AUTO NEGATIVE (NEGATIVE); LEUKOCYTE ESTERASE, URINE AUTO 3+ (NEGATIVE); NITRITE, URINE AUTO NEGATIVE (NEGATIVE); PROTEIN, URINE AUTO 1+ mg/dL (NEGATIVE); RBC, URINE AUTO 0 /HPF (0-3); SQUAMOUS EPITHELIAL CELL UR AU 1 /HPF (0-6); UROBILINOGEN, URINE AUTO 0.2 mg/dL (0.0-2.0); WBC, URINE AUTO TNTC /HPF (0-3)
== END ==
LOC: M SMT 13:17
PROVIDERS: ATTEND Nurse Practitioner Family
DX: R31.0 Gross hematuria (principal)

== ENCOUNTER 2024-11-11 12:25 | Outpatient (RCR) | payer MEDICARE, OTHER ==
[2020-07-29 10:56] VITALS: BP 113/67; O2SAT 97
[2020-07-29 12:28] LABS: BASO % 0.4 % (0.0-1.0); EOS # 0.2 10^3/uL (0.0-0.5); EOS % 2.4 % (0.0-3.0); HEMATOCRIT 36.9 % (42.0-52.0); HEMOGLOBIN 11.7 g/dl (13.5-17.5); LYMPH # 5.1 10^3/uL (1.5-5.0); LYMPH % 51.9 % (24.0-44.0); MEAN CORPUSCULAR HEMOGLOBIN 27.3 pg (27.0-33.0); MEAN CORPUSCULAR HGB CONC 31.7 g/dl (32.0-36.5); MEAN CORPUSCULAR VOLUME 86.2 fl (80.0-96.0); MONO # 1.3 10^3/uL (0.0-0.8); MONO % 13.3 % (2.0-8.0); NEUTROPHILS # 3.1 10^3/uL (1.5-8.5); NEUTROPHILS % 31.3 % (36.0-66.0); PLATELET COUNT, AUTOMATED 180 10^3/uL (150-450); RED BLOOD COUNT 4.28 10^6/uL (4.30-6.10)
[2020-07-29 12:30] LABS: WHITE BLOOD COUNT 9.9 10^3/uL (4.0-10.0)
[2020-07-29 13:03] LABS: ALBUMIN 4.1 GM/DL (3.2-5.2); ALKALINE PHOSPHATASE 70 U/L (45-117); ALT/SGPT 15 U/L (12-78); AST/SGOT 10 U/L (7-37); BILIRUBIN,TOTAL 1.1 MG/DL (0.2-1.0); BLOOD UREA NITROGEN 23 MG/DL (7-18); CALCIUM LEVEL 8.6 MG/DL (8.8-10.2); CARBON DIOXIDE LEVEL 24 MEQ/L (21-32); CHLORIDE LEVEL 109 MEQ/L (98-107); CREATININE FOR GFR 1.09 MG/DL (0.70-1.30); FERRITIN 13 NG/ML (26-388); GLOMERULAR FILTRATION RATE > 60.0 (>42); GLUCOSE, FASTING 114 MG/DL (70-100); IRON (FE) 58 UG/DL (65-175); LDH LACTATE DEHYDROGENASE 187 U/L (87-241); PERCENT SATURATION 14.3 % (19.7-50.0); POTASSIUM SERUM 4.7 MEQ/L (3.5-5.1); SODIUM LEVEL 140 MEQ/L (136-145); TOTAL IRON BINDING CAPACITY 406 UG/DL (250-450); TOTAL PROTEIN 7.3 GM/DL (6.4-8.2)
[2020-07-30 09:04] LABS: ALBUMIN 4.46 GM/DL (3.29-5.55); ALBUMIN % 61.1 % (55.8-66.1); ALPHA-1-GLOBULIN % 3.9 % (2.9-4.9); ALPHA-1-GLOBULINS 0.28 GM/DL (0.17-0.41); ALPHA-2-GLOBULINS 0.82 GM/DL (0.42-0.99); ALPHA-2-GLOBULINS % 11.2 % (7.1-11.8); BETA-1-GLOBULINS 0.46 GM/DL (0.28-0.60); BETA-1-GLOBULINS % 6.3 % (4.7-7.2); BETA-2-GLOBULINS 0.25 GM/DL (0.19-0.55); BETA-2-GLOBULINS % 3.4 % (3.2-6.5); GAMMA GLOBULIN % 14.1 % (11.1-18.8); GAMMA GLOBULINS 1.03 GM/DL (0.65-1.58)
[2020-08-02 04:05] LABS: ANTI DOUBLE STRAND-DNA AB 4 IU/mL (0-9); ANTINUCLEAR ANTIBODIES DIRECT Positive (Negative); BETA 2 MICROGLOBULIN 3.3 mg/L (0.6-2.4); FREE KAPPA LIGHT CHAINS SERUMX 13.9 mg/L (3.3-19.4); FREE LAMBDA LIGHT CHAINSX 24.7 mg/L (5.7-26.3); KAPPA/LAMBDA RATIO SERUMX 0.56 (0.26-1.65); RNP ANTIBODIES <0.2 AI (0.0-0.9); SJOGREN'S ANTI SS-A <0.2 AI (0.0-0.9); SJOGREN'S ANTI SS-B <0.2 AI (0.0-0.9); SMITH ANTIBODIES 2.3 AI (0.0-0.9)
[2020-09-03 10:56] LABS: BASO % 0.2 % (0.0-1.0); EOS # 0.3 10^3/uL (0.0-0.5); EOS % 2.5 % (0.0-3.0); HEMATOCRIT 34.7 % (42.0-52.0); HEMOGLOBIN 11.1 g/dl (13.5-17.5); LYMPH # 7.3 10^3/uL (1.5-5.0); MEAN CORPUSCULAR HEMOGLOBIN 28.9 pg (27.0-33.0); MEAN CORPUSCULAR VOLUME 90.4 fl (80.0-96.0); MONO # 1.9 10^3/uL (0.0-0.8); MONO % 13.5 % (2.0-8.0); NEUTROPHILS # 4.2 10^3/uL (1.5-8.5); NEUTROPHILS % 30.2 % (36.0-66.0); PLATELET COUNT, AUTOMATED 156 10^3/uL (150-450); RED BLOOD COUNT 3.84 10^6/uL (4.30-6.10); WHITE BLOOD COUNT 13.8 10^3/uL (4.0-10.0)
[2020-09-03 10:59] VITALS: BP 102/62; O2SAT 97
[2020-10-01 09:57] VITALS: BP 105/67; O2SAT 99
[2020-10-01 10:46] LABS: BASO % 0.2 % (0.0-1.0); EOS # 0.2 10^3/uL (0.0-0.5); EOS % 1.7 % (0.0-3.0); HEMATOCRIT 37.6 % (42.0-52.0); HEMOGLOBIN 11.9 g/dl (13.5-17.5); LYMPH # 6.9 10^3/uL (1.5-5.0); MEAN CORPUSCULAR HEMOGLOBIN 29.2 pg (27.0-33.0); MEAN CORPUSCULAR HGB CONC 31.6 g/dl (32.0-36.5); MEAN CORPUSCULAR VOLUME 92.4 fl (80.0-96.0); MONO # 2.2 10^3/uL (0.0-0.8); MONO % 15.6 % (2.0-8.0); NEUTROPHILS # 4.6 10^3/uL (1.5-8.5); NEUTROPHILS % 32.9 % (36.0-66.0); PLATELET COUNT, AUTOMATED 159 10^3/uL (150-450); RED BLOOD COUNT 4.07 10^6/uL (4.30-6.10)
[2020-10-01 10:50] LABS: WHITE BLOOD COUNT 14.1 10^3/uL (4.0-10.0)
[2024-08-26 13:56] VITALS: BP 114/75; O2SAT 97
[2024-08-26 15:14] LABS: BASO # 0.1 10^3/uL (0.0-0.2); BASO % 0.2 % (0.0-1.0); EOS # 0.1 10^3/uL (0.0-0.5); EOS % 0.4 % (0.0-3.0); HEMATOCRIT 29.5 % (42.0-52.0); HEMOGLOBIN 9.3 g/dl (13.5-17.5); LYMPH # 22.9 10^3/uL (1.5-5.0); MEAN CORPUSCULAR HEMOGLOBIN 27.9 pg (27.0-33.0); MEAN CORPUSCULAR HGB CONC 31.5 g/dl (32.0-36.5); MEAN CORPUSCULAR VOLUME 88.6 fl (80.0-96.0); MONO % 11.2 % (2.0-8.0); NEUTROPHILS # 5.4 10^3/uL (1.5-8.5); NEUTROPHILS % 16.7 % (36.0-66.0); PLATELET COUNT, AUTOMATED 312 10^3/uL (150-450); RED BLOOD COUNT 3.33 10^6/uL (4.30-6.10)
[2024-08-26 15:18] LABS: MONO # 3.6 10^3/uL (0.0-0.8); WHITE BLOOD COUNT 32.3 10^3/uL (4.0-10.0)
[2024-08-26 15:42] LABS: ALBUMIN 3.2 G/DL (3.2-5.2); BILIRUBIN,TOTAL 0.8 MG/DL (0.3-1.2); CALCIUM LEVEL 8.9 MG/DL (8.3-10.6); CREATININE FOR GFR 1.3 MG/DL (0.70-1.30); GLOMERULAR FILTRATION RATE 56.5 (>35); TOTAL PROTEIN 6.9 G/DL (5.7-8.2)
[2024-08-26 15:46] LABS: FOLATE 19.3 NG/ML (>5.4); THYROID STIMULATING HORMONE 3.757 uIU/ML (0.55-4.78)
[2024-08-26 15:47] LABS: FREE T4 1.67 NG/DL (0.89-1.76)
[2024-08-29 02:03] LABS: T P ELECTROPHORESIS SO 6.8 g/dL (6.1-8.1)
[2024-08-29 11:17] LABS: HAPTOGLOBIN 335 mg/dL (43-212)
[2024-09-01 07:27] LABS: ALBUMIN SPEP 3.7 g/dL (3.8-4.8); ALPHA-1-GLOBULINS SO 0.5 g/dL (0.2-0.3); ALPHA-2-GLOBULINS SO 1.1 g/dL (0.5-0.9); BETA 2 GLOBULIN 0.2 g/dL (0.2-0.5); BETA-GLOBULIN SO 0.3 g/dL (0.4-0.6)
[2024-09-01 14:53] LABS: SOLUBLE TRANSFERRIN RECEPTOR 1.98 mg/L (0.76-1.76)
[2024-10-16 09:19] VITALS: BP 107/61; O2SAT 97
[2024-10-16 10:16] LABS: BASO # 0.1 10^3/uL (0.0-0.2); BASO % 0.2 % (0.0-1.0); EOS # 0.2 10^3/uL (0.0-0.5); EOS % 0.6 % (0.0-3.0); HEMATOCRIT 35.2 % (42.0-52.0); HEMOGLOBIN 11.2 g/dl (13.5-17.5); LYMPH % 69.4 % (24.0-44.0); MEAN CORPUSCULAR HEMOGLOBIN 29.2 pg (27.0-33.0); MEAN CORPUSCULAR HGB CONC 31.8 g/dl (32.0-36.5); MEAN CORPUSCULAR VOLUME 91.7 fl (80.0-96.0); MONO % 16.9 % (2.0-8.0); NEUTROPHILS # 4.2 10^3/uL (1.5-8.5); NEUTROPHILS % 12.2 % (36.0-66.0); PLATELET COUNT, AUTOMATED 180 10^3/uL (150-450); RED BLOOD COUNT 3.84 10^6/uL (4.30-6.10)
[2024-10-16 10:18] LABS: MONO # 5.8 10^3/uL (0.0-0.8)
[2024-10-16 10:21] LABS: WHITE BLOOD COUNT 34.5 10^3/uL (4.0-10.0)
[2024-10-16 10:56] LABS: FERRITIN 180.6 NG/ML (10.5-307.3)
[2024-10-16 10:57] LABS: BILIRUBIN,TOTAL 1.1 MG/DL (0.3-1.2); CREATININE FOR GFR 1.37 MG/DL (0.70-1.30); GLOMERULAR FILTRATION RATE 52.2 (>35); PERCENT SATURATION 12.8 % (19.7-50.0); POTASSIUM SERUM 4.3 MMOL/L (3.5-5.1); TOTAL PROTEIN 6.6 G/DL (5.7-8.2)
[2024-10-16 10:59] LABS: FOLATE 22.3 NG/ML (>5.4)
[~2024-11-11] VITALS: Ht 167.6 cm; Wt 74.3 kg
[2024-11-11 13:06] VITALS: BP 102/61; O2SAT 97
[2024-11-17] MEDS ORDERED: POTA-298 PO (21:23)
[2024-11-17] MEDS ORDERED: FARX1TAB3 PO (21:23)
[2024-11-17] MEDS ORDERED: ASPI81TA26 PO (21:23)
[2024-11-17] MEDS ORDERED: LIDO4CRE12 TOP (21:23)
[2024-11-17] MEDS ORDERED: ACET1TAB55 PO (21:23)
[2024-11-17] MEDS ORDERED: FURO40TA2 PO (21:23)
[2024-11-17] MEDS ORDERED: FLEEENE12 PR (21:23)
[2024-11-17] MEDS ORDERED: DULC10SU2 PR (21:23)
[2024-11-17] MEDS ORDERED: ATOR1TAB19 PO (21:23)
[2024-11-17] MEDS ORDERED: MOM30SS2 PO (21:23)
[2024-11-17] MEDS ORDERED: SODIGEL TOP (21:23)
[2024-11-17] MEDS ORDERED: INSUH10VL SC (21:23)
[2024-11-17] MEDS ORDERED: PANT-23 PO (21:23)
[2024-11-17] MEDS ORDERED: COLA100C5 PO (21:23)
[2024-11-17] MEDS ORDERED: LEVO25TA5 PO (21:28)
[2024-11-17] MEDS ORDERED: LEVO200T4 PO (21:28)
[2024-11-18] MEDS ORDERED: TRAN1DIS4 TOP (09:46)
[2024-11-18] MEDS ORDERED: ATIV1TAB7 PO (09:46)
[2024-11-18] MEDS ORDERED: MORP10SO21 PO (09:50)
[2024-11-18] MEDS ORDERED: ONDA-282 PO (09:50)
[2024-11-21] MEDS ORDERED: dexAMETHasone 4 MG/ML 1 ML VIAL IV SCH
[2024-11-21] MEDS ORDERED: ACETAMINOPHEN 325 MG TAB PO SCH
[2024-11-21] MEDS ORDERED: diphenhydrAMINE HCL 25 MG CAP PO SCH
== END 2024-11-20 | disposition expired ==
LOC: M ONCM 12:25
PROVIDERS: ATTEND Internal Medicine Hematology & Oncology
DX: D64.9 Anemia, unspecified (principal); Z85.6 Personal history of leukemia; Z85.46 Personal history of malignant neoplasm of prostate; Z79.899 Other long term (current) drug therapy; Z99.3 Dependence on wheelchair; M19.90 Unspecified osteoarthritis, unspecified site; Z95.5 Presence of coronary angioplasty implant and graft; Z87.891 Personal history of nicotine dependence; R06.02 Shortness of breath
CPT/HCPCS: 36415; 80053; 82232; 82270; 82607; 82728; 82746; 83010; 83550; 83615; 83883; 84155; 84165; 84238; 84439; 84443; 85025; 85046; 86038; 86334; 86850; 86880; 88300; G0463

== ENCOUNTER → 2024-11-20 | Outpatient (REF) ==
[~2024-11-20] MED LIST changes: +ACET1TAB55 PO; +ASPI81TA26 PO; +ATIV1TAB7 PO; +ATOR1TAB19 PO; +COLA100C5 PO; +DULC10SU2 PR; +FARX1TAB3 PO; +FLEEENE12 PR; +FURO40TA2 PO; +INSUH10VL SC; +LEVO200T4 PO; +LEVO25TA5 PO; +LIDO4CRE12 TOP; +MOM30SS2 PO; +MORP10SO21 PO; +ONDA-282 PO; +PANT-23 PO; +POTA-298 PO; +SODIGEL TOP; +TRAN1DIS4 TOP
== END ==
PROVIDERS: ATTEND Physician Assistant
DX: D64.9 Anemia, unspecified (principal); Z85.6 Personal history of leukemia; Z85.46 Personal history of malignant neoplasm of prostate